=== PATIENT | female | born 1940 | race American Indian/Alaskan Native ===

== ENCOUNTER 2016-06-19 09:11 | Outpatient (CLI) | payer MEDICARE ==
--- NOTE | 2016-06-19 11:00 | Ultrasound Report ---
RIGHT UPPER QUADRANT ULTRASOUND: HISTORY: Abnormal results of liver function studies. Technique: Transabdominal ultrasound imaging with Doppler interrogation. FINDINGS: The gallbladder is sonolucent with no evidence of stones, polyps or wall thickening. The common duct is normal in caliber. Images of the liver parenchyma, pancreas, right kidney and aorta are within normal limits. No perihepatic ascites. IMPRESSION: Unremarkable right upper quadrant ultrasound.
== END 2016-06-19 09:12 | disposition home or self-care (01) ==
LOC: US 09:11
PROVIDERS: ATTEND Internal Medicine Gastroenterology
DX: R94.5 Abnormal results of liver function studies (principal)
CPT/HCPCS: 76705

== ENCOUNTER 2016-10-03 15:53 | Emergency (ER) | payer MEDICARE ==
[2016-10-03 17:48] LABS: Basophils % (Auto) 2.7 % (0.0-1.8); Eosinophils % (Auto) 1.8 % (0.0-4.3); Hematocrit 38.1 % (30.3-42.9); Hemoglobin 12.7 gm/dl (10.1-14.3); Mean Corpuscular HGB Conc 33 % (30-34); Mean Corpuscular Hemoglobin 30 pg (28-32); Mean Corpuscular Volume 90 fl (79-97); Platelet Count 225 K/mm3 (140-440); Red Blood Count 4.25 M/mm3 (3.65-5.03); Red Cell Distribution Width 13.2 % (13.2-15.2); White Blood Count 6.7 K/mm3 (4.5-11.0)
--- NOTE | 2016-10-03 18:12 | Cat Scan Report ---
FINAL REPORT PROCEDURE: CT HEAD/BRAIN WO CON TECHNIQUE: Computerized tomography of the head was performed without contrast material. HISTORY: Matt temp blind COMPARISON: No prior studies are available for comparison. FINDINGS: Skull and scalp: Sclerotic foci in the calvarium including high right frontal 9 millimeters right frontal bone 9 millimeters with patchy areas of sclerosis suspected. Followup and further workup is advised. Osseous metastasis is not excludable. Orbits: No intraconal or extraconal mass. No definitive pathology along the optic tracts, specifically on the right. Paranasal sinuses: Normal. Ventricles and subarachnoid spaces: Mild to moderately prominent ventricles in the posterior occipital lobes with only minimal prominence of the frontal and upper lateral ventricles Cerebrum: No evidence of hemorrhage, acute infarction or mass . Cerebellum and brainstem: No evidence of hemorrhage, acute infarction or mass. Vasculature: Normal. Comments: Mild to moderate diffuse atrophy with mild periventricular microischemic change and central lacunar infarct disease. Basal ganglia microcalcifications. If symptoms and or concern persists recommend MRI IMPRESSION: No acute intracranial pathology suspected at this time Asymmetric prominence of the occipital lobes indeterminate. No prior CT scan on file.
[2016-10-03 18:14] LABS: INR 1.02 (0.87-1.13)
[2016-10-03 18:32] LABS: Erythrocyte Sedimentation Rate 30 mm/Hr (0-20)
[2016-10-03 19:35] LABS: Creatine Kinase 319 units/L (30-135); Creatine Kinase MB 9.4 ng/mL (0.0-4.0)
[2016-10-03] MEDS ORDERED: CATAPRES ONE (21:21)
[2016-10-03] MEDS ORDERED: CATAPRES PO ONE ×2 (21:30→21:53)
[2016-10-03 22:12] VITALS: BP 225/112
[2016-10-03] MEDS ORDERED: ASPIRIN PO ONE (22:17)
--- NOTE | 2016-10-03 22:17 | Emergency Department Report ---
ED Neuro Deficit HPI - General Chief Complaint: Neuro Symptoms/Deficit Stated Complaint: BLACKED OUT Time Seen by Provider: 10/03/16 20:35 Source: patient Mode of arrival: Ambulatory Limitations: No Limitations - History of Present Illness Initial Comments: 76 yo female with a past medical history diabetes, mitral valve prolapse, glaucoma and chronic pain presents to the hospital complaining of transient loss of vision prior to arrival. Patient is a diabetic and states she assumed that this was secondary to her blood sugar dropping. Patient takes NovoLog sliding scale twice a day. Patient states she did eat but thinks maybe she didn 't eat enough. Patient said onset of visual loss to the right eye. Left eye was not affected. Patient denies diaphoresis, generalized weakness, or confusion. She was unable to check her glucose but ate some additional snacks then started to feel better. Episode lasted 20 minutes. Patient states that she felt like her sugar was low but was unable to confirm but denies having an ocular visual loss with hypoglycemia in the past. Patient has had transient unilateral vision loss a year ago and had a unremarkable stroke workup. - Related Data Home Medications: Home Medications Medication Instructions Recorded Confirmed Last Taken traMADol [Ultram] 50 mg PO Q4HR PRN 03/13/13 03/13/13 Unknown Previous Rx's Medication Instructions Recorded Last Taken Type HYDROcodone/ACETAMINOPHEN [[place] 1 each PO Q6HR PRN #20 tablet 03/13/13 Unknown Rx 5/325 Tablet] Aspirin EC [Aspirin Enteric Coated 325 mg PO QDAY #30 tablet. 10/03/16 Unknown Rx TAB] amLODIPine [Norvasc] 5 mg PO DAILY #30 tab 10/03/16 Unknown Rx Allergies/Adverse Reactions: Allergies Allergy/AdvReac Type Severity Reaction Status Date / Time gabapentin Allergy Unknown Verified 10/19/15 12:55 glipizide Allergy Shortness Verified 10/19/15 12:55 of Breath latex Allergy Swelling Verified 11/02/15 22:12 Penicillins Allergy Unknown Verified 10/19/15 12:54 sulfamethoxazole Allergy Itching Verified 10/19/15 12:54 [From Bactrim] trimethoprim [From Bactrim] Allergy Itching Verified 10/19/15 12:54 egg AdvReac Vomiting Verified 10/19/15 12:54 iv contrast Allergy Itching Uncoded 10/19/15 12:54 ED Review of Systems ROS: Stated complaint: BLACKED OUT Other details as noted in HPI Comment: All other systems reviewed and negative Other: Constitutional: No fevers chills Eyes: As per HPI ENT: No ear pain or throat pain Neck: Denies pain Respiratory: Denies cough wheezing shortness of breath Cardiovascular: Denies chest pain, palpitations, syncope GI: Denies abdominal pain, nausea, vomiting, diarrhea : Denies dysuria Musculoskeletal: Denies back pain, joint swelling Skin: Denies rash, lesions, erythema Neurologic: Denies headache, numbness, weakness Psychiatric: Denies suicidal ideation, hallucinations ED Past Medical Hx - Past Medical History Hx Diabetes: Yes Hx Arthritis: Yes Additional medical history: mitral valve prolapse, cyst in breast. GLAUCOMA - Surgical History Additional Surgical History: tubal, R pinky toe amputated - Social History Smoking Status: Never Smoker Substance Use Type: None - Medications Home Medications: Home Medications Medication Instructions Recorded Confirmed Last Taken Type HYDROcodone/ACETAMINOPHEN [[place] 1 each PO Q6HR PRN #20 tablet 03/13/13 Unknown Rx 5/325 Tablet] traMADol [Ultram] 50 mg PO Q4HR PRN 03/13/13 03/13/13 Unknown History Aspirin EC [Aspirin Enteric Coated 325 mg PO QDAY #30 tablet. 10/03/16 Unknown Rx TAB] amLODIPine [Norvasc] 5 mg PO DAILY #30 tab 10/03/16 Unknown Rx ED Neuro Physical Exam - General Limitations: No Limitations Suspected Stroke: Yes - NIHSS Assessment Interval: Baseline 1a. Level of Consciousness: alert 1b. LOC Questions: answers correctly 1c. LOC Commands: performs tasks correctly 2. Best Gaze: normal 3. Visual: no visual loss 4. Facial Palsy: normal symmetrical movement 5b. Motor Arm Right: no drift 5a. Motor Arm Left: no drift 6a. Motor Leg Left: no drift 6b. Motor Leg Right: no drift 7. Limb Ataxia: absent 8. Sensory: normal 9. Best Language: no aphasia 10. Dysarthria: normal 11. Extinction/Inattention: no abnormality Total Score: 0 Stroke Severity: No Stroke Symptoms - Other Other exam information: General: No limitations, patient is alert in no acute distress Head exam: Atraumatic, normocephalic Eyes exam: Normal appearance, pupils equal reactive to light, extraocular movements intact ENT: Moist mucous membrane, normal oropharynx Neck exam: Normal inspection, full range of motion, no meningismus nontender Respiratory exam: Clear to auscultation bilateral, no wheezes, rales, crackles Cardiovascular: Normal rate and rhythm, normal heart sounds Abdomen: Soft, nondistended, and nontender, with normal bowel sounds, no rebound, or guarding Extremity: Full range of motion normal inspection no deformity Back: Normal Inspection, full range of motion, no tenderness Neurologic: Alert, oriented x3, cranial nerves intact, no motor or sensory deficit, [id number] function intact Psychiatric: normal affect, normal mood Skin: Warm, dry, intact ED Course Vital Signs 10/03/16 10/03/16 10/03/16 16:35 20:35 20:40 Temperature 97.9 F Pulse Rate 86 Respiratory 16 Rate Blood Pressure 156/84 227/108 227/108 O2 Sat by Pulse 100 99 Oximetry 10/03/16 10/03/16 10/03/16 20:50 21:00 21:10 Temperature Pulse Rate Respiratory Rate Blood Pressure 216/108 217/183 217/183 O2 Sat by Pulse 99 98 99 Oximetry 10/03/16 10/03/16 10/03/16 21:20 21:31 22:12 Temperature Pulse Rate Respiratory Rate Blood Pressure 235/125 217/125 225/112 O2 Sat by Pulse 99 Oximetry - Reevaluation(s) Reevaluation #1: 10/03/16 Patient provided clonidine 0.2 mg and aspirin during ED stay. - Lab Data Result diagrams: 10/03/16 17:31 Lab Results 10/03/16 10/03/16 10/03/16 Range/Units 16:32 17:31 17:31 WBC 6.7 (4.5-11.0) K/mm3 RBC 4.25 (3.65-5.03) M/mm3 Hgb 12.7 (10.1-14.3) gm/dl Hct 38.1 (30.3-42.9) % MCV 90 (79-97) fl MCH 30 (28-32) pg MCHC 33 (30-34) % RDW 13.2 (13.2-15.2) % Plt Count 225 (140-440) K/mm3 Lymph % (Auto) 24.9 (13.4-35.0) % [place] % (Auto) 8.1 H (0.0-7.3) % Eos % (Auto) 1.8 (0.0-4.3) % Baso % (Auto) 2.7 H (0.0-1.8) % Lymph # 1.7 (1.2-5.4) K/mm3 [place] # 0.5 (0.0-0.8) K/mm3 Eos # 0.1 (0.0-0.4) K/mm3 Baso # 0.2 H (0.0-0.1) K/mm3 Seg Neutrophils % 62.5 (40.0-70.0) % Seg Neutrophils # 4.2 (1.8-7.7) K/mm3 ESR 30 (0-20) mm/Hr PT 13.3 (12.2-14.9) Sec. INR 1.02 (0.87-1.13) APTT 31.0 (24.2-36.6) Sec. Thrombin Time 15.8 (15.1-19.6) Sec. POC Glucose 112 H (70-105) Total Creatine Kinase (30-135) units/L CK-MB (CK-2) (0.0-4.0) ng/mL CK-MB (CK-2) Rel Index (0-4) Troponin T (0.00-0.029) ng/mL 10/03/16 Range/Units 17:31 WBC (4.5-11.0) K/mm3 RBC (3.65-5.03) M/mm3 Hgb (10.1-14.3) gm/dl Hct (30.3-42.9) % MCV (79-97) fl MCH (28-32) pg MCHC (30-34) % RDW (13.2-15.2) % Plt Count (140-440) K/mm3 Lymph % (Auto) (13.4-35.0) % [place] % (Auto) (0.0-7.3) % Eos % (Auto) (0.0-4.3) % Baso % (Auto) (0.0-1.8) % Lymph # (1.2-5.4) K/mm3 [place] # (0.0-0.8) K/mm3 Eos # (0.0-0.4) K/mm3 Baso # (0.0-0.1) K/mm3 Seg Neutrophils % (40.0-70.0) % Seg Neutrophils # (1.8-7.7) K/mm3 ESR (0-20) mm/Hr PT (12.2-14.9) Sec. INR (0.87-1.13) APTT (24.2-36.6) Sec. Thrombin Time (15.1-19.6) Sec. POC Glucose (70-105) Total Creatine Kinase 319 H (30-135) units/L CK-MB (CK-2) 9.4 H (0.0-4.0) ng/mL CK-MB (CK-2) Rel Index 2.9 (0-4) Troponin T < 0.010 (0.00-0.029) ng/mL - Radiology Data Radiology results: report reviewed CT head non-contrast: No acute pathology. Asymmetric prominence of this upper lobe indeterminate. Sclerotic foci in the calvarium including high right frontal 9 mm right frontal bone 9 mm in past years of sclerosis suspected. Follow-up and further workup of advised. Osseous metastasis not excluded. - Medical Decision Making Patient refuses EKG data she had a EKG as outpatient yesterday. EKG does reveal sinus rhythm. Patient initially refused clonidine stated she has whitecoat syndrome but then was eventually agreeable to taking clonidine 0.2 mg. Aspirin also ordered given concerns for TIA symptoms given transient unilateral loss of vision. Patient seems to think that her symptoms were secondary to hypoglycemia, this has not been confirmed. Admission recommended giving unilateral visual loss and risk of stroke. Patient has declined admission at this time and will leave AGAINST MEDICAL ADVICE. - Differential Diagnosis intraocular abnormality, TIA, hypoglycemic episode Critical Care Time: No Critical care attestation.: If time is entered above; I have spent that time in minutes in the direct care of this critically ill patient, excluding procedure time. ED Disposition Clinical Impression: Transient visual loss of right eye, Uncontrolled hypertension Disposition: [id number] LEFT AGAINST MED ADVICE Is pt being admited?: No Condition: Stable Instructions: Transient Ischemic Attack (ED), Hypertension (ED) Additional Instructions: We are concerned for stroke today given the fact that you lost your vision temporarily admission for further workup and has been recommended because you are at risk for severe and more persistent stroke symptoms. You have refused admission at this time. I have prescribed aspirin to help prevent further stroke symptoms. I have prescribed a blood pressure pill given your elevated blood pressure today. You are signing out AGAINST MEDICAL ADVICE because risk of stroke has not been ruled out and you may exhibit further disability and possible . You have also been provided a copy of the CAT scan and incidental findings may need further outpatient evaluation Prescriptions: amLODIPine [Norvasc] 5 mg PO DAILY #30 tab Aspirin EC [Aspirin Enteric Coated TAB] 325 mg PO QDAY #30 tablet. Referrals: PRIMARY CARE, [Primary Care Provider] - 24 Hours Forms: AMA Form Time of Disposition: 22:18
== END 2016-10-03 22:54 | disposition left against medical advice (07) ==
LOC: ED 15:53
DX: H53.121 Transient visual loss, right eye (principal); I10 Essential (primary) hypertension; M19.90 Unspecified osteoarthritis, unspecified site; E11.9 Type 2 diabetes mellitus without complications; Z79.82 Long term (current) use of aspirin; Z88.8 Allergy status to other drugs, medicaments and biological substances; Z88.0 Allergy status to penicillin; Z88.2 Allergy status to sulfonamides; Z91.012 Allergy to eggs; Z91.041 Radiographic dye allergy status
CPT/HCPCS: 36415; 70450; 82550; 82553; 82962; 84484; 85025; 85610; 85652; 85670; 85730; 99285

== ENCOUNTER 2016-10-05 17:21 | Inpatient (IN) | payer MEDICARE ==
[2016-10-05] MEDS ORDERED: CATAPRES ONE (17:54)
[2016-10-05] MEDS ORDERED: CATAPRES PO ONE (18:01)
[2016-10-05 18:07] LABS: Basophils % (Auto) 1.4 % (0.0-1.8); Eosinophils % (Auto) 1.7 % (0.0-4.3); Hematocrit 35.4 % (30.3-42.9); Hemoglobin 11.6 gm/dl (10.1-14.3); Mean Corpuscular HGB Conc 33 % (30-34); Mean Corpuscular Hemoglobin 30 pg (28-32); Mean Corpuscular Volume 90 fl (79-97); Platelet Count 227 K/mm3 (140-440); Red Blood Count 3.94 M/mm3 (3.65-5.03); Red Cell Distribution Width 13.4 % (13.2-15.2); White Blood Count 5.6 K/mm3 (4.5-11.0)
[2016-10-05 18:18] LABS: INR 0.91 (0.87-1.13)
[2016-10-05 18:19] LABS: Partial Thromboplastin Time 33.5 Sec. (24.2-36.6)
[2016-10-05 18:28] LABS: Anion Gap 19 mmol/L; BUN/Creatinine Ratio 18.46; Blood Urea Nitrogen 24 mg/dL (7-17); Carbon Dioxide 21 mmol/L (22-30); Chloride 100.5 mmol/L (98-107); Glucose 130 mg/dL (65-100); Potassium 4.3 mmol/L (3.6-5.0); Sodium 136 mmol/L (137-145)
--- NOTE | 2016-10-05 19:17 | Cat Scan Report ---
FINAL REPORT PROCEDURE: CT HEAD/BRAIN WO CON TECHNIQUE: Computerized tomography of the head was performed without contrast material. HISTORY: neuro deficits COMPARISON: Prior CT scan of the brain 10/03/2016 FINDINGS: Brain: There is no evidence of intracranial hemorrhage. No parenchymal hemorrhage is seen. No mass lesions or mass effect is identified. No abnormal extra-axial fluid collections or masses are seen. There is some decreased density seen in the periventricular white matter without mass effect. This is fairly symmetric and does not exhibit any mass effect consistent with gliosis probably on the basis of microvascular disease or white matter changes of aging. Ventricles: The ventricles, sulcal pattern and fissures are prominent consistent with atrophy. Bones: No evidence of acute fracture. Paranasal sinuses: Visualized portions appear clear. Mastoid air cells: clear IMPRESSION: Stable exam. There is evidence of mild atrophy and mild gliosis. No acute intracranial abnormalities are identified. If symptoms are persisting or worsening consider follow-up CT scan or MRI for further evaluation.
--- NOTE | 2016-10-05 22:20 | Emergency Department Report ---
ED General Adult HPI - General Chief complaint: Headache Stated complaint: FOLLOW UP / TIA Time Seen by Provider: 10/05/16 20:03 Source: patient Mode of arrival: Ambulatory Limitations: No Limitations - History of Present Illness Initial comments: She has a significant [id number] female past medical history of mitral valve prolapse and glaucoma who presents with headache. Patient states that she was here on the 11 of this month. When she had blindness in her right eye that lasted for 15 minutes. She states that her headache is a 5 [place] located in the temporal area of her head nothing makes it better or worse the headache is intermittent. Some gone on and off since she first came to the emergency department 2 days ago. The pain does not radiate anywhere. Patient left AGAINST MEDICAL ADVICE and her last visit in the ED. - Related Data Home Medications Medication Instructions Recorded Confirmed Last Taken traMADol [Ultram] 50 mg PO Q4HR PRN 03/13/13 03/13/13 Unknown Previous Rx's Medication Instructions Recorded Last Taken Type HYDROcodone/ACETAMINOPHEN [[place] 1 each PO Q6HR PRN #20 tablet 03/13/13 Unknown Rx 5/325 Tablet] Aspirin EC [Aspirin Enteric Coated 325 mg PO QDAY #30 tablet. 10/03/16 Unknown Rx TAB] amLODIPine [Norvasc] 5 mg PO DAILY #30 tab 10/03/16 Unknown Rx Allergies Allergy/AdvReac Type Severity Reaction Status Date / Time gabapentin Allergy Unknown Verified 10/19/15 12:55 glipizide Allergy Shortness Verified 10/19/15 12:55 of Breath latex Allergy Swelling Verified 11/02/15 22:12 Penicillins Allergy Unknown Verified 10/19/15 12:54 sulfamethoxazole Allergy Itching Verified 10/19/15 12:54 [From Bactrim] trimethoprim [From Bactrim] Allergy Itching Verified 10/19/15 12:54 egg AdvReac Vomiting Verified 10/19/15 12:54 iv contrast Allergy Itching Uncoded 10/19/15 12:54 ED Review of Systems ROS: Stated complaint: FOLLOW UP / TIA Other details as noted in HPI Constitutional: denies: chills, fever Eyes: as per HPI, vision change. denies: eye pain, eye discharge ENT: denies: ear pain, throat pain Respiratory: denies: cough, shortness of breath, wheezing Cardiovascular: denies: chest pain, palpitations Endocrine: no symptoms reported Gastrointestinal: denies: abdominal pain, nausea, diarrhea Genitourinary: denies: urgency, dysuria, discharge Musculoskeletal: denies: back pain, joint swelling, arthralgia Skin: denies: rash, lesions Neurological: headache Psychiatric: denies: anxiety, depression Hematological/Lymphatic: denies: easy bleeding, easy bruising ED Past Medical Hx - Past Medical History Previous Medical History?: Yes Hx Diabetes: Yes Hx Arthritis: Yes Additional medical history: mitral valve prolapse, cyst in breast. GLAUCOMA - Surgical History Past Surgical History?: Yes Additional Surgical History: tubal, R pinky toe amputated - Social History Smoking Status: Never Smoker Substance Use Type: None - Medications Home Medications: Home Medications Medication Instructions Recorded Confirmed Last Taken Type HYDROcodone/ACETAMINOPHEN [[place] 1 each PO Q6HR PRN #20 tablet 03/13/13 Unknown Rx 5/325 Tablet] traMADol [Ultram] 50 mg PO Q4HR PRN 03/13/13 03/13/13 Unknown History Aspirin EC [Aspirin Enteric Coated 325 mg PO QDAY #30 tablet. 10/03/16 Unknown Rx TAB] amLODIPine [Norvasc] 5 mg PO DAILY #30 tab 10/03/16 Unknown Rx ED Physical Exam - General Limitations: No Limitations General appearance: alert, in no apparent distress - Head Head exam: Present: atraumatic, normocephalic - Eye Eye exam: Present: other (cataracts ) Pupils: Present: other - ENT ENT exam: Present: mucous membranes moist - Neck Neck exam: Present: normal inspection - Respiratory Respiratory exam: Present: normal lung sounds bilaterally. Absent: respiratory distress - Cardiovascular Cardiovascular Exam: Present: systolic murmur - GI/Abdominal GI/Abdominal exam: Present: soft, normal bowel sounds - Extremities Exam Extremities exam: Present: normal inspection - Back Exam Back exam: Present: normal inspection - Neurological Exam Neurological exam: Present: alert, oriented X3, CN II-XII intact - Psychiatric Psychiatric exam: Present: normal affect - Skin Skin exam: Present: warm ED Course Vital Signs 10/05/16 10/05/16 10/05/16 17:33 18:02 20:10 Temperature 98.5 F Pulse Rate 91 H 91 H 90 Respiratory 16 20 Rate Blood Pressure 170/122 170/122 Blood Pressure 198/94 [Right] O2 Sat by Pulse 100 100 Oximetry 10/05/16 10/05/16 21:00 22:00 Temperature Pulse Rate 89 91 H Respiratory 18 19 Rate Blood Pressure Blood Pressure 200/100 200/110 [Right] O2 Sat by Pulse 100 100 Oximetry - Reevaluation(s) Reevaluation #1: 10/05/16 22:33 Reevaluation she states headache is better discussed patient that she will need to be admitted for TIA workup patient agrees with plan. ED Medical Decision Making - Lab Data Result diagrams: 10/05/16 17:54 10/05/16 17:54 Lab Results 10/05/16 10/05/16 10/05/16 Range/Units 17:54 17:54 17:54 WBC 5.6 (4.5-11.0) K/mm3 RBC 3.94 (3.65-5.03) M/mm3 Hgb 11.6 (10.1-14.3) gm/dl Hct 35.4 (30.3-42.9) % MCV 90 (79-97) fl MCH 30 (28-32) pg MCHC 33 (30-34) % RDW 13.4 (13.2-15.2) % Plt Count 227 (140-440) K/mm3 Lymph % (Auto) 36.3 H (13.4-35.0) % [place] % (Auto) 10.8 H (0.0-7.3) % Eos % (Auto) 1.7 (0.0-4.3) % Baso % (Auto) 1.4 (0.0-1.8) % Lymph # 2.0 (1.2-5.4) K/mm3 [place] # 0.6 (0.0-0.8) K/mm3 Eos # 0.1 (0.0-0.4) K/mm3 Baso # 0.1 (0.0-0.1) K/mm3 Seg Neutrophils % 49.8 (40.0-70.0) % Seg Neutrophils # 2.8 (1.8-7.7) K/mm3 PT 12.2 (12.2-14.9) Sec. INR 0.91 (0.87-1.13) APTT 33.5 (24.2-36.6) Sec. Thrombin Time (15.1-19.6) Sec. Sodium 136 L (137-145) mmol/L Potassium 4.3 (3.6-5.0) mmol/L Chloride 100.5 (98-107) mmol/L Carbon Dioxide 21 L (22-30) mmol/L Anion Gap 19 mmol/L BUN 24 H (7-17) mg/dL Creatinine 1.3 H (0.7-1.2) mg/dL Estimated GFR 48 ml/min BUN/Creatinine Ratio 18.46 % Glucose 130 H (65-100) mg/dL Calcium 9.0 (8.4-10.2) mg/dL Troponin T < 0.010 (0.00-0.029) ng/mL 10/05/16 Range/Units 17:54 WBC (4.5-11.0) K/mm3 RBC (3.65-5.03) M/mm3 Hgb (10.1-14.3) gm/dl Hct (30.3-42.9) % MCV (79-97) fl MCH (28-32) pg MCHC (30-34) % RDW (13.2-15.2) % Plt Count (140-440) K/mm3 Lymph % (Auto) (13.4-35.0) % [place] % (Auto) (0.0-7.3) % Eos % (Auto) (0.0-4.3) % Baso % (Auto) (0.0-1.8) % Lymph # (1.2-5.4) K/mm3 [place] # (0.0-0.8) K/mm3 Eos # (0.0-0.4) K/mm3 Baso # (0.0-0.1) K/mm3 Seg Neutrophils % (40.0-70.0) % Seg Neutrophils # (1.8-7.7) K/mm3 PT (12.2-14.9) Sec. INR (0.87-1.13) APTT (24.2-36.6) Sec. Thrombin Time 16.1 (15.1-19.6) Sec. Sodium (137-145) mmol/L Potassium (3.6-5.0) mmol/L Chloride (98-107) mmol/L Carbon Dioxide (22-30) mmol/L Anion Gap mmol/L BUN (7-17) mg/dL Creatinine (0.7-1.2) mg/dL Estimated GFR ml/min BUN/Creatinine Ratio % Glucose (65-100) mg/dL Calcium (8.4-10.2) mg/dL Troponin T (0.00-0.029) ng/mL - Radiology Data Radiology results: report reviewed, image reviewed CT head shows mild atrophia and mild gliosis. No acute intracranial abnormality. F/U MRI recommended. - Medical Decision Making Chief medical diagnosis: TIA Differential medical diagnosis: stroke, electrolyte abnormality, HTN urgency I'll get a CBC, CMP, CT head and will admit patient for TIA workup Patient's signs are concerning for TIA I will admit patient to the hospital. Critical care attestation.: If time is entered above; I have spent that time in minutes in the direct care of this critically ill patient, excluding procedure time. ED Disposition Clinical Impression: Hypertensive urgency TIA (transient ischemic attack) Qualifiers: Transient cerebral ischemia type: unspecified Qualified Code(s): G45.9 - Transient cerebral ischemic attack, unspecified Disposition: 09 OP ADMIT IP TO THIS HOSP Is pt being admited?: Yes Does the pt Need Aspirin: No Condition: Stable Referrals: PRIMARY CARE, [Primary Care Provider] - 3-5 Days Time of Disposition: 23:10
[2016-10-05] MEDS ORDERED: APRESOLINE PO ONE (23:34)
[2016-10-05] MEDS ORDERED: NORMODYNE IV ONE (23:34)
[2016-10-06] MEDS ORDERED: NORVASC PO ONE ×2 (00:05→00:33)
[2016-10-06] MEDS ORDERED: TYLENOL PO PRN (00:11)
[2016-10-06] MEDS ORDERED: D50W (25GM) Syringe IV PRN (00:13)
[2016-10-06] MEDS ORDERED: ZOFRAN IV PRN ×2 (00:14→10:30)
[2016-10-06] MEDS ORDERED: APRESOLINE IV PRN (04:07)
[2016-10-06] MEDS ORDERED: NORCO 5/325 PO PRN (04:09)
[2016-10-06] MEDS ORDERED: ULTRAM PO PRN (04:09)
--- NOTE | 2016-10-06 08:09 | Admit Criteria Form ---
Admission Criteria Documentation: TRANSIENT ISCHEMIC ATTACK (TIA) Clinical Indications for Admission to Inpatient Care (Place 'X' for any and all applicable criteria): Admission is indicated for ANY ONE of the following(1)(2)(3)(4)(5): [ ]I. Immediate inpatient procedure is needed (eg, endarterectomy). [X]II. Inpatient admission required rather than observation care (Also use Transient Ischemic Attack (TIA): Observation Care Criteria as appropriate) because of ANY ONE of the following: [ ]a) Focal neurologic signs or symptoms persist or recurring [ ]b) Cardiac arrhythmias of immediate concern [ ]c) Clinically significant cardiac disorder identified that requires inpatient care (eg, severe valvular disease, atrial myxoma, cardiomyopathy) [X]d) Hypertension requiring inpatient treatment [ ]e) Parenteral anticoagulation required (eg, alternative forms of anticoagulation not appropriate or not feasible) as indicated by ALL of the following(13): [ ]i) Temporary subtherapeutic anticoagulation unacceptable because of high risk of short-term venous or arterial thromboembolism due to ANY ONE of the following(14)(15)(16): [ ]1) Atrial fibrillation suspected as etiology of TIA(17)(18)(19)(20)(21) [ ]2) Venous thromboembolism within past 12 months [ ]3) Underlying malignancy [ ]4) Patient with mechanical cardiac valve(22)( 23) [ ]5) Underlying hypercoagulable state (eg, protein C or protein S deficiency antithrombin deficiency, antiphospholipid antibodies) [ ]6) Patient at temporary high risk of thromboembolism (eg, status post orthopedic surgery) [ ]ii) Contraindications to outpatient use of "bridging" agent or alternative oral anticoagulant[B] as indicated by ALL of the following: [ ]1) Contraindication to outpatient use of low- molecular-weight heparin as "bridging" agent as indicated by ANY ONE of the following(15): [ ]A. Documented current or history of heparin-induced thrombocytopenia(24) [ ]B. Severe thrombocytopenia (eg, platelet count less than 50,000/mm3 (33y325/L) [ ]C. Documented allergy to heparin, low- molecular-weight heparin, or pork products [ ]D. Renal failure (creatinine clearance less than 30 mL/min/1.73m2 (0.50mL/sec/1.73m2) or on dialysis) [ ]E. Inability to manage self-injection ( eg, by patient, caregiver, or visiting nurse) [ ]2) Contraindication to outpatient use of fondaparinux as "bridging" agent as indicated by ANY ONE of the following(25)(26 )(27)(28): [ ]A. Severe thrombocytopenia (eg, platelet count less than 50,000/mm3 (50 x109/L)) [ ]B.Hypersensitivity to fondaparinux, related drugs, or product components [ ]C.Renal failure (creatinine clearance less than 30 mL/min/1.73m2 (0.50mL/sec/1.73m2) or on dialysis) [ ]D.Inability to manage self-injection ( eg, by patient, caregiver, or visiting nurse [ ]3. Oral direct thrombin inhibitor (eg, dabigatran) or oral coagulation factor Xa inhibitor (eg, rivaroxaban, apixaban) not appropriate as oral anticoagulation (eg, indication not appropriate) or contraindicated (eg, hypersensitivity, creatinine clearance less than 15 mL/min/1.73m2 ( 0.25 mL/sec/1.73m2) or on dialysis). [ ]f) Continuous IV infusion of anticoagulant, platelet inhibitor, vasoactive or antiarrhythmia(18)(19) [ ]g) Other condition, treatment, or monitoring requiring inpatient admission [ ]III. Contraindications and/or Inappropriate clinical situations for Observational Care in patients with Transient Ischemic Attack (TIA), when ANY ONE of the following is required: [ ]a) Patient with persistent or severe neurological deficit 24 [ ]b) Patient with acute CVA or other identified pathology should be admitted to inpatient for further care 25 [ ]IV. General contraindications and/or Inappropriate clinical situations for Observational Care in patients with Transient Ischemic Attack (TIA), when ANY ONE of the following is required: [ ]a) Prediction of prolongation of LOS based on ANY ONE of the following may be considered as a contraindication for observational care 2, 3, 4, 5, 6, 7, 8, 9, 10, 11 [ ]i) Age > 65 yrs. [ ]ii) Patient arriving by ambulance [ ]iii) Patient with high acuity [ ]iv) Patient requiring vital sign monitoring [ ]v) Patient on IV medication [ ]b) Systolic blood pressures 180mmHg 3,12 [ ]c) Patient with altered mental status including delirium and other alteration of consciousness, (3) [ ]d) Patient whose discharge disposition will be to a care home home or rehabilitation home should not be managed in Emergency Department Observation Unit. CMS rule requires 3 days hospital stay before such placement.3,13 [ ]e) Patient with failure to thrive due to broad array of etiologies 3,16,17 [ ]f) Inability to ambulate 3,14 Extended stay beyond goal length of stay may be needed for(4)(30)(32): [ ]a) Parenteral anticoagulation required [ ]b) Dangerous arrhythmia [ ]c) Cardiac valvular disorder, atrial myxoma, cardiomyopathy [ ]d) Uncontrolled severe hypertension [ ]e) Severe carotid stenosis [ ]f) Active comorbidities (eg, heart failure) [ ]g) Extracranial vertebrobasilar disease(29) [ ]h) Clinical evolution of TIA into cerebrovascular accident (stroke) The original [employer] content created by [employer] has been revised. The portions of thecontent which have been revised are identified through the use of italic text or in bold, and [facility] has neither reviewed nor approved the modified material. All other unmodified content is copyright [facility] [employer]. Please see references footnoted in the original [facility] edition 2016 Admission Criteria Met: Yes
[2016-10-06 08:19] LABS: Creatine Kinase MB 6.9 ng/mL (0.0-4.0)
[2016-10-06 08:22] LABS: Creatine Kinase 460 units/L (30-135)
--- NOTE | 2016-10-06 08:45 | History and Physical Report ---
CHIEF COMPLAINT: Headache, other complaints include loss of vision in the right eye. HISTORY OF PRESENT ILLNESS: The patient is a 76-year-old female who presented to the Emergency Room with headache and loss of vision in the right eye for about 15 minutes. The patient had similar symptoms not too long ago, came to the Emergency Room and left against medical advice. There is no history of numbness on any part of the body. No history of change in speech or abnormal speech. The patient also denied history of weakness in any part of the body and said that the loss of vision improved after some 15-20 minutes. The patient denied history of pain in the eye or trauma to the eye. PAST MEDICAL HISTORY: Pertinent for diabetes mellitus, also the patient has past history of arthritis, mitral valve prolapse, cyst in the breast, glaucoma. PAST SURGICAL HISTORY: Pertinent for tubal ligation, right pinky toe amputation. FAMILY HISTORY: Noncontributory. SOCIAL HISTORY: The patient does not smoke, does not drink alcohol and does not use illicit drugs. MEDICATIONS: The patient is on Kimberly 5/325 one by mouth every 6 hours as needed for pain, Ultram 50 mg by mouth every 4 hours as needed for pain and enteric-coated aspirin 325 mg by mouth daily. The patient is also on Norvasc 5 mg by mouth daily. ALLERGIES: The patient is allergic to GABAPENTIN, GLIPIZIDE, LATEX, PENICILLIN, AND SULFAMETHOXAZOLE. REVIEW OF SYSTEMS: CONSTITUTIONAL: There is no fever, no chills, no diaphoresis. HEENT: Denies headache and there is loss of vision for a brief period of time on the right eye. There is no sore throat. CARDIOVASCULAR SYSTEM: There is no chest pain, orthopnea. RESPIRATORY: There is no shortness of breath or cough. GASTROINTESTINAL SYSTEM: There is no nausea, no vomiting, no abdominal pain, diarrhea or constipation. NEUROLOGICAL SYSTEM: There is no numbness, no dizziness, no altered mental status. MUSCULOSKELETAL SYSTEM: There is no joint pain or swelling. DERMATOLOGICAL SYSTEM: There is no skin rash or itching. GENITOURINARY: There is no dysuria, hematuria, or flank pain. Rest of system review is normal. PHYSICAL EXAMINATION: GENERAL: At the time of exam, the patient was found to be alert, oriented x 3 and not in acute distress. VITAL SIGNS: Shows normal temperature with pulse of 86, respirations 18, initial blood pressure 208/97, O2 sat of 100% on room air. Subsequent blood pressure showed a downward trend to 130/64 and the last blood pressure at the time of this dictation shows 151/75. HEENT: Showed pupils to be equal, round, reactive to light and accommodation. Extraocular muscles are intact. NECK: Supple with no JVD or carotid bruit. CARDIOVASCULAR SYSTEM: Show first and second heart sounds with no gallops or murmur. RESPIRATORY: Showed good air entry on both sides of the lung with no abnormal breath sounds. GASTROINTESTINAL SYSTEM: Show abdomen to be full, soft, nontender with no organomegaly or rigidity. NEUROLOGICAL: Showed no focal deficits. MUSCULOSKELETAL SYSTEM: Show no joint swelling or tenderness. DERMATOLOGICAL SYSTEM: Show no skin rash. GENITOURINARY: Showing no costovertebral angle tenderness. PERTINENT LABORATORY DATA AND IMAGING STUDIES: The patient had CBC done that came back unremarkable except for CBC differential that shows high lymphocyte count of 36.3% and high monocyte count of 10.8. Coagulation studies were unremarkable. Chemistry shows low sodium of 136, low CO2 of 21 with high BUN of 24 with high creatinine of 1.3, glucose level showed a slightly high value of 130. First level of troponin came back normal. IMAGING STUDIES: The patient had a CT of the head done without contrast and it shows no acute intracranial abnormality. However there is finding of mild gliosis. DIAGNOSES: 1. TIA. 2. Transient loss of vision in the right eye. PLAN: The patient will be admitted to medical floor and will have MRI of the brain done in the morning. The patient will also have echocardiogram done in the morning and will have bilateral carotid Doppler done in the morning. The patient will have Accu-Chek done a.c. and at bedtime, followed by sliding scale using regular insulin coverage. The patient will be on telemetry. DVT prophylaxis will be with sequential compressive device. Diet will be consistent carbohydrate diet and low sodium diet. The patient will have cardiac enzymes checked q. 6 hours x 2 more levels and will be on Tylenol 650 mg every 6 hours as needed for fever, headache and will be on aspirin 325 mg by mouth daily. The patient will also be on Zofran 4 mg every 6 hours as needed for nausea and vomiting and will be on IV hydralazine 10 mg q. 4 hours as needed for blood pressure above 160/90. The patient's home medications will be reconciled and started. JOB# [id number] OCN/NTS MTDD
[2016-10-06] MEDS ORDERED: NORVASC PO SCH (10:00)
[2016-10-06] MEDS ORDERED: ECOTRIN PO SCH ×2 (10:00)
--- NOTE | 2016-10-06 10:04 | Magnetic Resonance Report ---
MRI BRAIN WITHOUT CONTRAST INDICATION: TIA. COMPARISON: Yesterday's head CT. FINDINGS: Noncontrast multiplanar and multisequence MRI of the brain demonstrates normal sulci and age-appropriate, symmetric ventricles with few periventricular and white matter FLAIR and T2 weighted hyperintensities. No acute infarct, hemorrhage, mass effect or midline shift. No abnormal extra-axial masses or fluid collections. Normal major intracranial vascular flow voids. Normal posterior fossa structures with symmetric seventh and eighth nerve complexes. Symmetric, grossly unremarkable eye globes. Mild bilateral ethmoid sinusitis anteriorly. Clear remainder imaged paranasal sinuses and mastoid air cells. Normal midline structures without evidence of Chiari malformation. CONCLUSION: No acute intracranial MRI abnormality with age-appropriate atrophy and few other incidental findings, as described. Thank you for the opportunity to participate in this patient's care.
--- NOTE | 2016-10-06 10:27 | Progress Note ---
Assessment and Plan Assessment and plan: CVA. Patient exhibited symptoms of what sounds like amaurosis fugax. Follow- up MRI/MRA and echocardiogram. Start aspirin and place patient on CVA pathway. Follow-up lipid panel. PT/OT. Supportive care. Right carotid artery stenosis. Carotid ultrasound reveals 50-70% stenosis. Vascular consultation. Mitral valve prolapse. Echocardiogram pending. History Interval history: Patient seen in vascular lab. Hospitalist Physical - Constitutional Vitals: Temp Pulse Resp BP Pulse Ox 98.5 F 74 14 109/51 97 10/05/16 17:33 10/06/16 07:00 10/06/16 07:00 10/06/16 07:00 10/06/16 07:00 General appearance: Present: no acute distress, well-nourished - EENT Eyes: Present: PERRL, EOM intact ENT: hearing intact, clear oral mucosa, dentition normal - Neck Neck: Present: supple, normal ROM - Respiratory Respiratory effort: normal Respiratory: bilateral: CTA - Cardiovascular Rhythm: regular Heart Sounds: Present: S1 & S2. Absent: gallop, rub - Extremities Extremities: no ischemia, No edema, Full ROM - Abdominal General gastrointestinal: soft, non-tender, non-distended, normal bowel sounds - Integumentary Integumentary: Present: clear, warm, dry - Neurologic Neurologic: CNII-XII intact, moves all extremities Results - Labs CBC & Chem 7: 10/05/16 17:54 10/05/16 17:54 Labs: Laboratory Last Values WBC 5.6 K/mm3 (4.5-11.0) 10/05/16 17:54 RBC 3.94 M/mm3 (3.65-5.03) 10/05/16 17:54 Hgb 11.6 gm/dl (10.1-14.3) 10/05/16 17:54 Hct 35.4 % (30.3-42.9) 10/05/16 17:54 MCV 90 fl (79-97) 10/05/16 17:54 MCH 30 pg (28-32) 10/05/16 17:54 MCHC 33 % (30-34) 10/05/16 17:54 RDW 13.4 % (13.2-15.2) 10/05/16 17:54 Plt Count 227 K/mm3 (140-440) 10/05/16 17:54 Lymph % (Auto) 36.3 % (13.4-35.0) H 10/05/16 17:54 [place] % (Auto) 10.8 % (0.0-7.3) H 10/05/16 17:54 Eos % (Auto) 1.7 % (0.0-4.3) 10/05/16 17:54 Baso % (Auto) 1.4 % (0.0-1.8) 10/05/16 17:54 Lymph # 2.0 K/mm3 (1.2-5.4) 10/05/16 17:54 [place] # 0.6 K/mm3 (0.0-0.8) 10/05/16 17:54 Eos # 0.1 K/mm3 (0.0-0.4) 10/05/16 17:54 Baso # 0.1 K/mm3 (0.0-0.1) 10/05/16 17:54 Seg Neutrophils % 49.8 % (40.0-70.0) 10/05/16 17:54 Seg Neutrophils # 2.8 K/mm3 (1.8-7.7) 10/05/16 17:54 PT 12.2 Sec. (12.2-14.9) 10/05/16 17:54 INR 0.91 (0.87-1.13) 10/05/16 17:54 APTT 33.5 Sec. (24.2-36.6) 10/05/16 17:54 Thrombin Time 16.1 Sec. (15.1-19.6) 10/05/16 17:54 Sodium 136 mmol/L (137-145) L 10/05/16 17:54 Potassium 4.3 mmol/L (3.6-5.0) 10/05/16 17:54 Chloride 100.5 mmol/L (98-107) 10/05/16 17:54 Carbon Dioxide 21 mmol/L (22-30) L 10/05/16 17:54 Anion Gap 19 mmol/L 10/05/16 17:54 BUN 24 mg/dL (7-17) H 10/05/16 17:54 Creatinine 1.3 mg/dL (0.7-1.2) H 10/05/16 17:54 Estimated GFR 48 ml/min 10/05/16 17:54 BUN/Creatinine Ratio 18.46 % 10/05/16 17:54 Glucose 130 mg/dL (65-100) H 10/05/16 17:54 POC Glucose 171 (70-105) H 10/06/16 08:07 Calcium 9.0 mg/dL (8.4-10.2) 10/05/16 17:54 Total Creatine Kinase 460 units/L (30-135) H 10/06/16 07:52 CK-MB (CK-2) 6.9 ng/mL (0.0-4.0) H 10/06/16 07:52 CK-MB (CK-2) Rel Index 1.5 (0-4) 10/06/16 07:52 Troponin T < 0.010 ng/mL (0.00-0.029) 10/06/16 07:52
[2016-10-06] MEDS ORDERED: DULCOLAX PR PRN (10:30)
[2016-10-06] MEDS ORDERED: SODIUM CHLORIDE FLUSH SYRINGE 10 ML IV PRN (10:30)
[2016-10-06] MEDS ORDERED: PHENERGAN PR PRN (10:30)
[2016-10-06] MEDS ORDERED: MILK OF MAGNESIA PO PRN (10:30)
[2016-10-06] MEDS ORDERED: REGLAN PO PRN (10:30)
--- NOTE | 2016-10-06 11:03 | Magnetic Resonance Report ---
MRA HEAD WITHOUT CONTRAST INDICATION: Stroke. COMPARISON: None similar. FINDINGS: MRA of the head performed without intravenous contrast and demonstrates no evidence of occlusion or vascular malformation. Please note that detection of aneurysms less than 5 mm is limited on this exam. Slight attenuation/narrowing of the right ICA just before entering the cavernous sinus though not excluded as on source images 44-47. Somewhat small vertebrobasilar tree caliber, though grossly patent as well, allowing for the artifact. CONCLUSION: Findings, as above. Thank you for the opportunity to participate in this patient's care.
[2016-10-06] MEDS: NORVASC PO SCH (12:25)
[2016-10-06] MEDS ORDERED: ZOCOR PO SCH (22:00)
[2016-10-06 23:43] LABS: Creatine Kinase MB 7.9 ng/mL (0.0-4.0)
[2016-10-06 23:44] LABS: Creatine Kinase 547 units/L (30-135)
[2016-10-07] MEDS: TYLENOL PO PRN ×2 (03:37→11:21)
--- NOTE | 2016-10-07 08:54 | Discharge Summary ---
Providers - Providers Date of Admission: 10/06/16 00:05 Date of discharge: 10/07/16 Attending physician: TAMMI HALLMAN 10/06/16 09:27 Physical Therapy Evaluation and Treat [CONS] Routine Comment: Reason For Exam: TIA 10/06/16 09:28 Occupational Therapy Evaluate and Treat [CONS] Routine Comment: Reason For Exam: TIA 10/06/16 10:30 Consult to Case Management [CONS] Routine Services Needed at Discharge: Home Health Services Notified:: cm notified Occupational Therapy Evaluate and Treat [CONS] Routine Comment: Reason For Exam: Neuro deficits Physical Therapy Evaluation and Treat [CONS] Routine Comment: Reason For Exam: Neuro deficits Primary care physician: [employer] SUPERVISOR Hospitalization Reason for admission: headache Condition: Stable Hospital course: This is a 76-year-old female with past medical history significant for mitral valve prolapse and glaucoma who presented to the emergency department with complaints of headache. Patient stated that she was previously seen here on 01/09 with symptoms of blindness to her right eye that lasted for approximately 15 minutes. Patient appeared to have symptoms related to amaurosis fugax from a likely TIA. Patient was evaluated with CT scan of the head initially that was found to be negative. Patient also underwent MRI and echocardiogram that were both also essentially normal. However, patient was noted to have right internal carotid stenosis of 50-79%. Therefore, vascular surgery consultation was obtained. Patient will follow-up [place] surgery as an outpatient. Patient was advised to take aspirin for secondary stroke prevention however stated that she had some hemorrhaging to the eye which may prevent her from taking aspirin. Patient stated that she will follow-up with her organizational development specialist. Patient is felt to have received maximal hospital benefit. Dedicated discharge time 31 minutes. Disposition: DC- TO HOME OR SELFCARE Time spent for discharge: 31 - Discharge Diagnoses (1) Hypertensive urgency Status: Acute (2) TIA (transient ischemic attack) Status: Acute Qualifiers: Transient cerebral ischemia type: unspecified Qualified Code(s): G45.9 - Transient cerebral ischemic attack, unspecified (3) Transient visual loss of right eye Status: Acute (4) Uncontrolled hypertension Status: Acute Core Measure Documentation - Palliative Care Palliative Care/ Comfort Measures: Not Applicable - Core Measures Any of the following diagnoses?: none Exam - Constitutional Vitals: Temp Pulse Resp BP Pulse Ox 97.7 F 84 18 172/82 100 10/07/16 04:00 10/07/16 04:00 10/07/16 04:00 10/07/16 04:00 10/07/16 04:00 General appearance: Present: no acute distress, well-nourished - EENT Eyes: Present: PERRL ENT: hearing intact, clear oral mucosa - Neck Neck: Present: supple, normal ROM - Respiratory Respiratory effort: normal Respiratory: bilateral: CTA - Cardiovascular Heart Sounds: Present: S1 & S2. Absent: rub, click - Extremities Extremities: pulses symmetrical, No edema Peripheral Pulses: within normal limits - Abdominal General gastrointestinal: Present: soft, non-tender, non-distended, normal bowel sounds Female genitourinary: Present: normal - Integumentary Integumentary: Present: clear, warm, dry - Musculoskeletal Musculoskeletal: gait normal, strength equal bilaterally - Psychiatric Psychiatric: appropriate mood/affect, intact judgment & insight - Neurologic Neurologic: CNII-XII intact, moves all extremities Plan Activity: no restrictions Weight Bearing Status: Full Weight Bearing Diet: low fat, low cholesterol, low salt Follow up with: PRIMARY MD ROSS [Primary Care Provider] - 3-5 Days MARISABEL MEDLEY MD [Staff Physician] - 7 Days Prescriptions: Aspirin [Aspirin TAB] 325 mg PO QDAY #30 tablet Simvastatin [Zocor TAB] 20 mg PO QHS #30 tablet
[2016-10-07 09:02] VITALS: BP 185/90
[2016-10-07] MEDS ORDERED: ASPIRIN PO SCH (10:00)
[2016-10-07] MEDS: NORVASC PO SCH (11:18)
--- NOTE | 2016-10-09 08:11 | Vascular Lab Report ---
CAROTID DUPLEX STUDY: RIGHT PSVEDV CCA PROX: 8620 CCA DIST: 7118 ICA PROX:96018 ICA MID:[id number] ICA DIST:[id number] ECA: 117 VERT: 96 12 LEFT PSVEDV CCA PROX:94 24 CCA DIST:[id number] ICA PROX:17643 ICA MID:05810 ICA DIST:9031 ECA: 128 VERT: 80 15 REASON FOR EXAM: TIA. COMMENTS ON THE RIGHT: Doppler frequency analysis is consistent with 50 to 79 percent diameter reduction of the internal carotid artery. Mixed density plaque encroaching on the lumen of the carotid bulb is noted. Plaque is also noted extending into the internal carotid artery. The common carotid artery is patent. The external carotid artery is patent. The vertebral artery has antegrade flow. COMMENTS ON THE LEFT: Doppler frequency analysis is consistent with 16 to 49 percent diameter reduction of the internal carotid artery. Minimal amount of plaque is seen. The common carotid artery is patent. The external carotid artery is patent. The vertebral artery has antegrade flow. IMPRESSION: 50 to 79 percent diameter reduction in the right internal carotid artery. 16 to 49 percent diameter reduction in the left internal carotid artery. Clinical correlation is recommended. Followup CTA or MRA may be required.
== END 2016-10-07 12:50 | disposition home or self-care (01) | DRG 69 ==
LOC: ED 17:21 → 4A 10-06 00:05
PROVIDERS: ADMIT Internal Medicine; ATTEND Hospitalist
DX: G45.9 Transient cerebral ischemic attack, unspecified (principal); H53.121 Transient visual loss, right eye; I16.0 Hypertensive urgency; I10 Essential (primary) hypertension; H40.9 Unspecified glaucoma; E11.9 Type 2 diabetes mellitus without complications; M19.90 Unspecified osteoarthritis, unspecified site; I34.1 Nonrheumatic mitral (valve) prolapse; Z88.0 Allergy status to penicillin; Z88.8 Allergy status to other drugs, medicaments and biological substances; Z91.040 Latex allergy status; Z91.012 Allergy to eggs; Z91.041 Radiographic dye allergy status; Z98.51 Tubal ligation status; Z89.421 Acquired absence of other right toe(s)
CPT/HCPCS: 36415; 70450; 70544; 70551; 80048; 80061; 82550; 82553; 82962; 84484; 85025; 85610; 85652; 85670; 85730; 93306; 93880; 96374; 99285; G8987-GO; G8988-GO; G8989-GO; J1815

== ENCOUNTER 2017-06-01 13:06 | Outpatient (CLI) | payer MEDICARE ==
[2017-06-01 13:22] LABS: Hematocrit 37.7 % (30.3-42.9); Hemoglobin 12.6 gm/dl (10.1-14.3)
[2017-06-01 13:45] LABS: Albumin 3.9 g/dL (3.9-5); Calcium 9.1 mg/dL (8.4-10.2); Uric Acid 6.2 mg/dL (3.5-7.6)
[2017-06-01 13:59] LABS: Creatinine,Urine 30.7 mg/dL (0.1-20.0); Protein/Creatinine Ratio,Urine 0.26
== END 2017-06-01 13:07 | disposition home or self-care (01) ==
LOC: LAB 13:06
PROVIDERS: ATTEND Internal Medicine Nephrology
DX: I12.9 Hypertensive chronic kidney disease with stage 1 through stage 4 chronic kidney disease, or unspecified chronic kidney disease (principal); N18.3 Chronic kidney disease, stage 3 (moderate); E11.22 Type 2 diabetes mellitus with diabetic chronic kidney disease; D63.1 Anemia in chronic kidney disease; N17.9 Acute kidney failure, unspecified; E87.2 Acidosis; R80.9 Proteinuria, unspecified; R60.9 Edema, unspecified
CPT/HCPCS: 36415; 80048; 82040; 82570; 84100; 84156; 84550; 85014; 85018

== ENCOUNTER 2017-06-05 09:26 | Outpatient (CLI) | payer MEDICARE ==
[2017-06-05 09:42] LABS: Hematocrit 37.9 % (30.3-42.9); Hemoglobin 12.5 gm/dl (10.1-14.3); Mean Corpuscular HGB Conc 33 % (30-34); Mean Corpuscular Hemoglobin 29 pg (28-32); Mean Corpuscular Volume 89 fl (79-97); Platelet Count 241 K/mm3 (140-440); Red Blood Count 4.28 M/mm3 (3.65-5.03); Red Cell Distribution Width 13.7 % (13.2-15.2)
[2017-06-05 10:04] LABS: Albumin 3.8 g/dL (3.9-5); Calcium 9.2 mg/dL (8.4-10.2); Chol/HDL Ratio 3.89 %
== END 2017-06-05 09:27 | disposition home or self-care (01) ==
LOC: LAB 09:26
PROVIDERS: ATTEND Specialist
DX: E11.21 Type 2 diabetes mellitus with diabetic nephropathy (principal); I10 Essential (primary) hypertension; Z79.899 Other long term (current) drug therapy
CPT/HCPCS: 36415; 80053; 80061; 83036; 85027

== ENCOUNTER 2017-09-10 12:58 | Emergency (ER) | payer MEDICARE ==
[2017-09-10 13:36] VITALS: BP 155/66
[2017-09-10 15:11] LABS: Basophils # (Auto) 0.1 K/mm3 (0.0-0.1); Basophils % (Auto) 2.3 % (0.0-1.8); Eosinophils # (Auto) 0.2 K/mm3 (0.0-0.4); Hematocrit 36.3 % (30.3-42.9); Hemoglobin 12.6 gm/dl (10.1-14.3); Lymphocytes # (Auto) 1.6 K/mm3 (1.2-5.4); Lymphocytes % (Auto) 28.1 % (13.4-35.0); Mean Corpuscular HGB Conc 35 % (30-34); Mean Corpuscular Hemoglobin 32 pg (28-32); Mean Corpuscular Volume 91 fl (79-97); Monocytes # (Auto) 0.6 K/mm3 (0.0-0.8); Monocytes % (Auto) 10.4 % (0.0-7.3); Platelet Count 262 K/mm3 (140-440); Red Cell Distribution Width 12.9 % (13.2-15.2)
[2017-09-10 15:23] LABS: Bacteria,Urine 1+ /HPF (Negative); Bilirubin,Urine NEG (Negative); Blood,Urine NEG (Negative); Color,Urine Straw (Yellow); Protein,Urine <15 mg/dL mg/dL (Negative); Urobilinogen,Urine < 2.0 mg/dL (<2.0)
[2017-09-10 15:24] LABS: Albumin 4.3 g/dL (3.9-5); Calcium 9.4 mg/dL (8.4-10.2)
== END 2017-09-10 18:35 | disposition left against medical advice (07) ==
LOC: ED 12:58
DX: M79.1 Myalgia (principal); Z53.21 Procedure and treatment not carried out due to patient leaving prior to being seen by health care provider
CPT/HCPCS: 36415; 80053; 81001; 85025; 93005; 93010

== ENCOUNTER 2017-09-11 14:10 | Emergency (ER) | payer MEDICARE ==
[2017-09-11 14:24] VITALS: BP 136/66
== END 2017-09-11 20:10 | disposition left against medical advice (07) ==
LOC: ED 14:10
DX: M79.1 Myalgia (principal); Z53.21 Procedure and treatment not carried out due to patient leaving prior to being seen by health care provider

== ENCOUNTER 2018-04-14 11:25 | Emergency (ER) | payer MEDICARE ==
[2018-04-14 11:42] VITALS: BP 194/92
[2018-04-14] MEDS ORDERED: NACL 0.9% 1000 ML 1,000 ML IV ONE (11:42)
[2018-04-14 12:55] LABS: Basophils # (Auto) 0.1 K/mm3 (0.0-0.1); Basophils % (Auto) 1.8 % (0.0-1.8); Eosinophils % (Auto) 0.7 % (0.0-4.3); Hematocrit 38.6 % (30.3-42.9); Hemoglobin 13.1 gm/dl (10.1-14.3); Lymphocytes # (Auto) 1.6 K/mm3 (1.2-5.4); Lymphocytes % (Auto) 32.8 % (13.4-35.0); Mean Corpuscular HGB Conc 34 % (30-34); Mean Corpuscular Volume 91 fl (79-97); Monocytes # (Auto) 0.3 K/mm3 (0.0-0.8); Monocytes % (Auto) 7.1 % (0.0-7.3); Platelet Count 246 K/mm3 (140-440); Red Blood Count 4.26 M/mm3 (3.65-5.03); Red Cell Distribution Width 12.8 % (13.2-15.2)
[2018-04-14 13:14] LABS: Albumin 4.1 g/dL (3.9-5); Calcium 9.4 mg/dL (8.4-10.2)
--- NOTE | 2018-04-14 13:27 | Emergency Department Report ---
ED General Adult HPI - General Chief complaint: Abdominal Pain Stated complaint: DIZZY/NO BOWEL MOVEMENT Time Seen by Provider: 04/14/18 13:11 Source: patient Mode of arrival: Ambulatory Limitations: No Limitations, Physical Limitation - History of Present Illness Initial comments: Patient is a 77-year-old asthmatic female states she has not had a good bowel movement in approximately 2 weeks. Patient states a week ago she did manually disimpact herself. Patient states she only got a small amount out. Patient denies any abdominal pain and is passing flatus. Patient denies any chest pain shortness of breath fevers chills nausea vomiting or diarrhea. Patient states she does urinate frequency but she states it's secondary to a pressure-like sen sation from a large amount of stool in her rectum. - Related Data Home Medications Medication Instructions Recorded Confirmed Last Taken traMADol [Ultram 50 MG tab] 50 mg PO Q4HR PRN 03/13/13 03/13/13 Unknown Previous Rx's Medication Instructions Recorded Last Taken Type HYDROcodone/ACETAMINOPHEN [[place] 1 each PO Q6HR PRN #20 tablet 03/13/13 Unknown Rx 5/325 Tablet] Aspirin EC [Aspirin Enteric Coated 325 mg PO QDAY #30 tablet. 10/03/16 Unknown Rx TAB] amLODIPine [Norvasc] 5 mg PO DAILY #30 tab 10/03/16 Unknown Rx Aspirin [Aspirin TAB] 325 mg PO QDAY #30 tablet 10/07/16 Unknown Rx Simvastatin (Nf) [Zocor TAB] 20 mg PO QHS #30 tablet 10/07/16 Unknown Rx Amlodipine Besylate [Norvasc] 5 mg PO DAILY #30 tablet 04/14/18 Unknown Rx Docusate Sodium [Colace] 100 mg PO BID #60 capsule 04/14/18 Unknown Rx Allergies Allergy/AdvReac Type Severity Reaction Status Date / Time gabapentin Allergy Unknown Verified 10/19/15 12:55 glipizide Allergy Shortness Verified 10/19/15 12:55 of Breath latex Allergy Swelling Verified 11/02/15 22:12 Penicillins Allergy Unknown Verified 10/19/15 12:54 sulfamethoxazole Allergy Itching Verified 10/19/15 12:54 [From Bactrim] trimethoprim [From Bactrim] Allergy Itching Verified 10/19/15 12:54 egg AdvReac Vomiting Verified 10/19/15 12:54 iv contrast Allergy Itching Uncoded 10/19/15 12:54 ED Review of Systems ROS: Stated complaint: DIZZY/NO BOWEL MOVEMENT Other details as noted in HPI Comment: All other systems reviewed and negative ED Past Medical Hx - Past Medical History Hx Hypertension: Yes Hx Diabetes: Yes Hx Arthritis: Yes Hx Kidney Stones: Yes Additional medical history: mitral valve prolapse, cyst in breast. GLAUCOMA - Surgical History Past Surgical History?: Yes Additional Surgical History: tubal, R pinky toe amputated - Social History Smoking Status: Never Smoker Substance Use Type: None - Medications Home Medications: Home Medications Medication Instructions Recorded Confirmed Last Taken Type HYDROcodone/ACETAMINOPHEN [[place] 1 each PO Q6HR PRN #20 tablet 03/13/13 Unknown Rx 5/325 Tablet] traMADol [Ultram 50 MG tab] 50 mg PO Q4HR PRN 03/13/13 03/13/13 Unknown History Aspirin EC [Aspirin Enteric Coated 325 mg PO QDAY #30 tablet. 10/03/16 Unknown Rx TAB] amLODIPine [Norvasc] 5 mg PO DAILY #30 tab 10/03/16 Unknown Rx Aspirin [Aspirin TAB] 325 mg PO QDAY #30 tablet 10/07/16 Unknown Rx Simvastatin (Nf) [Zocor TAB] 20 mg PO QHS #30 tablet 10/07/16 Unknown Rx Amlodipine Besylate [Norvasc] 5 mg PO DAILY #30 tablet 04/14/18 Unknown Rx Docusate Sodium [Colace] 100 mg PO BID #60 capsule 04/14/18 Unknown Rx ED Physical Exam - General Limitations: No Limitations, Physical Limitation General appearance: alert, in no apparent distress - Head Head exam: Present: atraumatic, normocephalic - Eye Eye exam: Present: normal appearance - ENT ENT exam: Present: mucous membranes moist - Neck Neck exam: Present: normal inspection - Respiratory Respiratory exam: Present: normal lung sounds bilaterally. Absent: respiratory distress, wheezes, rales, rhonchi - Cardiovascular Cardiovascular Exam: Present: regular rate, normal rhythm. Absent: systolic murmur, diastolic murmur, rubs, gallop - GI/Abdominal GI/Abdominal exam: Present: soft, normal bowel sounds. Absent: distended, tenderness, guarding, rebound - Extremities Exam Extremities exam: Present: normal inspection - Back Exam Back exam: Present: normal inspection - Neurological Exam Neurological exam: Present: alert, oriented X3 - Psychiatric Psychiatric exam: Present: normal affect, normal mood - Skin Skin exam: Present: warm, dry, intact, normal color. Absent: rash ED Course Vital Signs 04/14/18 11:40 Temperature 97.7 F Pulse Rate 93 H Respiratory 18 Rate Blood Pressure 194/92 O2 Sat by Pulse 100 Oximetry ED Medical Decision Making - Lab Data Result diagrams: 04/14/18 12:39 04/14/18 12:39 - Medical Decision Making Patient has been moved to a private room. Patient received a enema and will be discharged home. Critical care attestation.: If time is entered above; I have spent that time in minutes in the direct care of this critically ill patient, excluding procedure time. ED Disposition Clinical Impression: Constipation Qualifiers: Constipation type: slow transit constipation Qualified Code(s): K59.01 - Slow transit constipation Hypertension Qualifiers: Hypertension type: unspecified Qualified Code(s): I10 - Essential (primary) hypertension Disposition: - TO HOME OR SELFCARE Is pt being admited?: No Does the pt Need Aspirin: No Condition: Stable Instructions: Hypertension (ED), Constipation (ED), High Fiber Diet (ED) Referrals: HUE JAY MD [Primary Care Provider] - 3-5 Days Time of Disposition: 13:28
[2018-04-14] MEDS ORDERED: PEPCID PO ONE (13:39)
== END 2018-04-14 15:00 | disposition home or self-care (01) ==
LOC: ED 11:25
DX: K59.00 Constipation, unspecified (principal); I10 Essential (primary) hypertension
CPT/HCPCS: 36415; 80053; 82962; 85025

== ENCOUNTER 2018-04-26 19:43 | Emergency (ER) | payer MEDICARE ==
--- NOTE | 2018-04-26 20:10 | Emergency Department Report ---
Chief Complaint: Abdominal Pain Stated Complaint: CONSTIPATION Time Seen by Provider: 04/26/18 20:04 - HPI History of Present Illness: Pt c/o constipation that began a couple of weeks ago she states she last had a BM two days ago says she was seen in the ED recently for same problem and had a manual enema (+) bloating no abdominal pain, no V/D pt has an appointment to see GI next week Pt states that she fell yesterday while she was mopping she fell out of a chair and states that she "lona her head" she states she is having frontal and occipital JALLOH no unilateral weakness, no numbness MSE complete MSE screening note: Focused history and physical exam performed. ED Disposition for MSE Condition: Stable Instructions: Abdominal Pain (ED)
[2018-04-26 20:45] LABS: Alanine Aminotransferase 30 units/L (7-56); Albumin 4.3 g/dL (3.9-5); BUN/Creatinine Ratio 13; Blood Urea Nitrogen 14 mg/dL (7-17); Calcium 9.3 mg/dL (8.4-10.2); Hemolysis Index 8
[2018-04-26 20:47] LABS: Bilirubin,Direct < 0.2 mg/dL (0-0.2)
[2018-04-26 20:48] LABS: Basophils # (Auto) 0.1 K/mm3 (0.0-0.1); Basophils % (Auto) 2.3 % (0.0-1.8); Eosinophils # (Auto) 0.1 K/mm3 (0.0-0.4); Eosinophils % (Auto) 1.2 % (0.0-4.3); Hematocrit 37.3 % (30.3-42.9); Hemoglobin 12.6 gm/dl (10.1-14.3); Lymphocytes # (Auto) 1.5 K/mm3 (1.2-5.4); Lymphocytes % (Auto) 30.6 % (13.4-35.0); Mean Corpuscular HGB Conc 34 % (30-34); Mean Corpuscular Volume 91 fl (79-97); Monocytes # (Auto) 0.4 K/mm3 (0.0-0.8); Monocytes % (Auto) 8.4 % (0.0-7.3); Platelet Count 265 K/mm3 (140-440); Red Blood Count 4.11 M/mm3 (3.65-5.03); Red Cell Distribution Width 12.9 % (13.2-15.2)
[2018-04-26 20:51] LABS: INR 0.87 (0.87-1.13)
--- NOTE | 2018-04-26 21:15 | Cat Scan Report ---
PROCEDURE: CT HEAD/BRAIN WO CON TECHNIQUE: CT images of the head were obtained without the use of IV contrast HISTORY: ground level fall, JALLOH COMPARISONS: None available FINDINGS: There is diffuse prominence of the ventricular system, which could be related to central atrophy. Tem poral horns do not appear dilated out of proportion to the rest of the ventricular system. There is n o CT evidence of intracranial mass, acute hemorrhage, or acute territorial infarction. Calvarium is i ntact. Paranasal sinuses and mastoids are aerated. IMPRESSION: No CT evidence of acute abnormality. This document is electronically signed by Kamila Holland MD., April 26 2018 09:13:17 PM ET
--- NOTE | 2018-04-26 21:36 | XRay Report ---
PROCEDURE: XR ABDOMEN 1V AP HISTORY: Abdominal Pain FINDINGS: Supine view the abdomen was acquired. There is cardiomegaly. Air is seen within nondistended loops of small bowel and large bowel. There is no bowel obstruction. Stool is seen throughout the colon. The patient appears mildly constipated. IMPRESSION: No bowel obstruction Constipation This document is electronically signed by Ameya Tran MD., April 26 2018 09:34:05 PM ET
[2018-04-26] MEDS ORDERED: FLEET PR ONE (22:10)
[2018-04-26] MEDS ORDERED: CATAPRES ONE (23:11)
[2018-04-26 23:17] LABS: Bilirubin,Urine NEG (Negative); Blood,Urine NEG (Negative); Color,Urine Colorless (Yellow); Protein,Urine <15 mg/dL mg/dL (Negative); RBC,Urine < 1.0 /HPF (0.0-6.0); Urobilinogen,Urine < 2.0 mg/dL (<2.0)
[2018-04-26] MEDS ORDERED: CATAPRES PO ONE (23:17)
--- NOTE | 2018-04-26 23:20 | Emergency Department Report ---
ED General Adult HPI - General Chief complaint: Abdominal Pain Stated complaint: CONSTIPATION Time Seen by Provider: 04/26/18 20:04 Source: patient Mode of arrival: Ambulatory Limitations: Physical Limitation - History of Present Illness Initial comments: 77-year-old female presents to be with complaint of constipation. Patient has been seen previously for same complaint. States she has small bowel movement today, last bowel movement was a few days ago. Patient denies abdominal pain, nausea, vomiting. Patient reports dizziness when straining and attempting to have a bowel movement. Patient has appointment next week with paste mixer liquid, currently taking stool softeners. Patient also states she fell yesterday, onto her bottom, when the chair slipped from underneath her. Patient did not hit her head, however, states her head felt "lona." -: days(s) (3) Severity scale (0 -10): 0 Consistency: intermittent Improves with: other (enema) Worsens with: none Associated Symptoms: denies: fever/chills, nausea/vomiting - Related Data Home Medications Medication Instructions Recorded Confirmed Last Taken traMADol [Ultram 50 MG tab] 50 mg PO Q4HR PRN 03/13/13 03/13/13 Unknown Previous Rx's Medication Instructions Recorded Last Taken Type HYDROcodone/ACETAMINOPHEN [[place] 1 each PO Q6HR PRN #20 tablet 03/13/13 Unknown Rx 5/325 Tablet] Aspirin EC [Aspirin Enteric Coated 325 mg PO QDAY #30 tablet. 10/03/16 Unknown Rx TAB] amLODIPine [Norvasc] 5 mg PO DAILY #30 tab 10/03/16 Unknown Rx Aspirin [Aspirin TAB] 325 mg PO QDAY #30 tablet 10/07/16 Unknown Rx Simvastatin (Nf) [Zocor TAB] 20 mg PO QHS #30 tablet 10/07/16 Unknown Rx Amlodipine Besylate [Norvasc] 5 mg PO DAILY #30 tablet 04/14/18 Unknown Rx Docusate Sodium [Colace] 100 mg PO BID #60 capsule 04/14/18 Unknown Rx Allergies Allergy/AdvReac Type Severity Reaction Status Date / Time gabapentin Allergy Unknown Verified 10/19/15 12:55 glipizide Allergy Shortness Verified 10/19/15 12:55 of Breath latex Allergy Swelling Verified 11/02/15 22:12 Penicillins Allergy Unknown Verified 10/19/15 12:54 sulfamethoxazole Allergy Itching Verified 10/19/15 12:54 [From Bactrim] trimethoprim [From Bactrim] Allergy Itching Verified 10/19/15 12:54 egg AdvReac Vomiting Verified 10/19/15 12:54 iv contrast Allergy Itching Uncoded 10/19/15 12:54 ED Review of Systems ROS: Stated complaint: CONSTIPATION Other details as noted in HPI Comment: All other systems reviewed and negative Constitutional: denies: chills, fever Respiratory: denies: shortness of breath Cardiovascular: denies: chest pain Gastrointestinal: constipation. denies: abdominal pain, nausea, vomiting, diarrhea Neurological: denies: headache ED Past Medical Hx - Past Medical History Hx Hypertension: Yes Hx Diabetes: Yes Hx Arthritis: Yes Hx Kidney Stones: Yes Additional medical history: mitral valve prolapse, cyst in breast. GLAUCOMA - Surgical History Additional Surgical History: tubal, R pinky toe amputated - Social History Smoking Status: Unknown if ever smoked Substance Use Type: None - Medications Home Medications: Home Medications Medication Instructions Recorded Confirmed Last Taken Type HYDROcodone/ACETAMINOPHEN [[place] 1 each PO Q6HR PRN #20 tablet 03/13/13 Unknown Rx 5/325 Tablet] traMADol [Ultram 50 MG tab] 50 mg PO Q4HR PRN 03/13/13 03/13/13 Unknown History Aspirin EC [Aspirin Enteric Coated 325 mg PO QDAY #30 tablet. 10/03/16 Unknown Rx TAB] amLODIPine [Norvasc] 5 mg PO DAILY #30 tab 10/03/16 Unknown Rx Aspirin [Aspirin TAB] 325 mg PO QDAY #30 tablet 10/07/16 Unknown Rx Simvastatin (Nf) [Zocor TAB] 20 mg PO QHS #30 tablet 10/07/16 Unknown Rx Amlodipine Besylate [Norvasc] 5 mg PO DAILY #30 tablet 04/14/18 Unknown Rx Docusate Sodium [Colace] 100 mg PO BID #60 capsule 04/14/18 Unknown Rx ED Physical Exam - General Limitations: Physical Limitation General appearance: alert, in no apparent distress - Head Head exam: Present: atraumatic, normocephalic - Eye Eye exam: Present: normal appearance - ENT ENT exam: Present: mucous membranes moist - Neck Neck exam: Present: normal inspection - Respiratory Respiratory exam: Present: normal lung sounds bilaterally. Absent: respiratory distress - Cardiovascular Cardiovascular Exam: Present: regular rate, normal rhythm - GI/Abdominal GI/Abdominal exam: Present: soft. Absent: distended, tenderness - Extremities Exam Extremities exam: Present: normal inspection - Neurological Exam Neurological exam: Present: alert, oriented X3 - Psychiatric Psychiatric exam: Present: normal affect, normal mood - Skin Skin exam: Present: warm, dry, intact, normal color ED Course Vital Signs 04/26/18 04/26/18 04/26/18 20:05 21:00 23:10 Temperature 97.9 F 98.1 F Pulse Rate 98 H 85 86 Respiratory 18 16 14 Rate Blood Pressure 172/85 Blood Pressure 181/96 194/108 [Left] O2 Sat by Pulse 99 100 100 Oximetry 04/26/18 04/26/18 23:24 23:46 Temperature 98.2 F Pulse Rate 84 87 Respiratory 16 Rate Blood Pressure 194/103 Blood Pressure 178/82 [Left] O2 Sat by Pulse 99 Oximetry - Reevaluation(s) Reevaluation #1: 04/26/18 23:19 Enema given. Patient passed stool. ED Medical Decision Making - Lab Data Result diagrams: 04/26/18 20:13 04/26/18 20:13 - Radiology Data Radiology results: report reviewed, image reviewed - Medical Decision Making 77-year-old female with constipation. Abdominal series confirms, no evidence of bowel obstruction. She was given an enema here in ED and did produce stool. Patient states she is feeling much better. Advised to follow with paste mixer liquid next week. CT head negative. Labs unremarkable. Will discharge at this time. Return precautions given. - Differential Diagnosis constipation, bowel obstruction Critical care attestation.: If time is entered above; I have spent that time in minutes in the direct care of this critically ill patient, excluding procedure time. ED Disposition Clinical Impression: Constipation, Head injury, Fall, Hypertension Disposition: -01 TO HOME OR SELFCARE Is pt being admited?: No Condition: Stable Instructions: Constipation (ED), High Fiber Diet (ED), Hypertension (ED) Referrals: KAREN BRENNAN MD [Primary Care Provider] - 3-5 Days PRIMARY CARE, [Referring] - 3-5 Days Time of Disposition: 23:18
[2018-04-26 23:48] VITALS: BP 178/82
== END 2018-04-27 00:03 | disposition home or self-care (01) ==
LOC: ED 19:43
DX: S09.90XA Unspecified injury of head, initial encounter (principal); K59.00 Constipation, unspecified; I10 Essential (primary) hypertension; E11.9 Type 2 diabetes mellitus without complications; M19.90 Unspecified osteoarthritis, unspecified site; Z79.82 Long term (current) use of aspirin; Z88.0 Allergy status to penicillin; Z88.2 Allergy status to sulfonamides; Z88.8 Allergy status to other drugs, medicaments and biological substances; Z88.1 Allergy status to other antibiotic agents; Z91.041 Radiographic dye allergy status; Z91.012 Allergy to eggs; Z91.040 Latex allergy status; W07.XXXA Fall from chair, initial encounter; Y93.89 Activity, other specified; Y92.89 Other specified places as the place of occurrence of the external cause; Y99.8 Other external cause status
CPT/HCPCS: 36415; 70450; 74018; 80048; 80076; 81001; 83690; 85025; 85610; 99284

== ENCOUNTER 2018-05-10 08:47 | Outpatient (CLI) | payer MEDICARE ==
[2018-05-10 09:23] LABS: Hematocrit 39.3 % (30.3-42.9); Hemoglobin 13.1 gm/dl (10.1-14.3); Mean Corpuscular HGB Conc 33 % (30-34); Mean Corpuscular Volume 91 fl (79-97); Platelet Count 280 K/mm3 (140-440); Red Blood Count 4.33 M/mm3 (3.65-5.03); Red Cell Distribution Width 12.8 % (13.2-15.2)
[2018-05-10 09:38] LABS: Albumin 4.1 g/dL (3.9-5); Calcium 9.1 mg/dL (8.4-10.2); Chol/HDL Ratio 3.79 %
[2018-05-10 10:41] LABS: Bacteria,Urine 1+ /HPF (Negative); Bilirubin,Urine NEG (Negative); Blood,Urine NEG (Negative); Color,Urine Straw (Yellow); Hyaline Casts,Urine 8 /LPF; Protein,Urine <15 mg/dL mg/dL (Negative); RBC,Urine < 1.0 /HPF (0.0-6.0); Urobilinogen,Urine < 2.0 mg/dL (<2.0)
[2018-05-10 15:59] LABS: Creatinine,Urine 53.5 mg/dL (0.1-20.0); Microalbumin/Creatinine Ratio 87.8 ug/mg
== END 2018-05-10 08:48 | disposition home or self-care (01) ==
LOC: LAB 08:47
PROVIDERS: ATTEND Specialist
DX: E11.65 Type 2 diabetes mellitus with hyperglycemia (principal); I10 Essential (primary) hypertension; M19.90 Unspecified osteoarthritis, unspecified site
CPT/HCPCS: 36415; 80053; 80061; 81001; 82043; 83036; 85027

== ENCOUNTER 2018-06-27 16:23 | Emergency (ER) | payer MEDICARE | END 2018-06-27 17:30 | disposition left against medical advice (07) | LOC: ED 16:23 | DX: R10.9 Unspecified abdominal pain (principal); Z53.21 Procedure and treatment not carried out due to patient leaving prior to being seen by health care provider ==

== ENCOUNTER 2018-07-15 11:45 | Inpatient (IN) | payer MEDICARE ==
--- NOTE | 2018-07-15 12:02 | Emergency Department Report ---
Blank Doc - Documentation Documentation: 77 y o ld female presents to ED cc of abd soreness at mid,epigastric region x [facility] GI doctor cant specify why shes here states she also fell at home some days ago and has blisters to her left leg, ambulating well with walker BAsic labs ACC eval
[2018-07-15] MEDS ORDERED: NORCO 5/325 PO ONE (12:32)
[2018-07-15] MEDS ORDERED: ANTIVERT PO ONE (12:33)
[2018-07-15 12:36] LABS: Basophils # (Auto) 0.1 K/mm3 (0.0-0.1); Basophils % (Auto) 1.3 % (0.0-1.8); Eosinophils # (Auto) 0.1 K/mm3 (0.0-0.4); Eosinophils % (Auto) 1.5 % (0.0-4.3); Hematocrit 34.6 % (30.3-42.9); Hemoglobin 11.6 gm/dl (10.1-14.3); Lymphocytes # (Auto) 1.3 K/mm3 (1.2-5.4); Lymphocytes % (Auto) 27.2 % (13.4-35.0); Mean Corpuscular HGB Conc 33 % (30-34); Mean Corpuscular Volume 92 fl (79-97); Monocytes # (Auto) 0.5 K/mm3 (0.0-0.8); Monocytes % (Auto) 9.8 % (0.0-7.3); Platelet Count 258 K/mm3 (140-440); Red Blood Count 3.76 M/mm3 (3.65-5.03); Red Cell Distribution Width 13.1 % (13.2-15.2)
--- NOTE | 2018-07-15 12:43 | Emergency Department Report ---
HPI - General Chief Complaint: Abdominal Pain Time Seen by Provider: 07/15/18 11:57 - HPI HPI: Room 5 The patient is a 77-year-old female presented with a chief complaint of dizziness and left leg pain. The patient is a poor historian but admits to dizz iness and headache intermittently for several months. He states the dizziness increased over the past week. The patient states last night she also felt blister on her left leg. Patient states she hit her family physician today for the dizziness and left leg pain and was subsequently sent to the ED for further evaluation. Patient admits to a fall days ago prompting her to come to the ED for evaluation, but states she did not injure her left leg during the incident. The patient gives her pain a score of 10/10 Location: [See above] Duration: [See above] Quality: [See above] Severity: [See above] Modifying factors: [see above] Context: [see above] Mode of transportation: [not driving] ED Past Medical Hx - Past Medical History Previous Medical History?: Yes Hx Hypertension: Yes (Not on medication) Hx Diabetes: Yes Hx Renal Disease: Yes Hx Arthritis: Yes Hx Kidney Stones: Yes Additional medical history: mitral valve prolapse, cyst in breast. Cataract - Surgical History Past Surgical History?: Yes Additional Surgical History: Bilateral tubal ligation, R pinky toe surgery - Family History Family history: no significant - Social History Smoking Status: Never Smoker Substance Use Type: None - Medications Home Medications: Home Medications Medication Instructions Recorded Confirmed Last Taken Type HYDROcodone/ACETAMINOPHEN [[place] 1 each PO Q6HR PRN #20 tablet 03/13/13 Unknown Rx 5/325 Tablet] traMADol [Ultram 50 MG tab] 50 mg PO Q4HR PRN 03/13/13 03/13/13 Unknown History Aspirin EC 325 mg PO QDAY #30 tablet. 10/03/16 Unknown Rx amLODIPine [Norvasc] 5 mg PO DAILY #30 tab 10/03/16 Unknown Rx Aspirin 325 mg PO QDAY #30 tablet 10/07/16 Unknown Rx Simvastatin (Nf) [Zocor TAB] 20 mg PO QHS #30 tablet 10/07/16 Unknown Rx Docusate Sodium [Colace] 100 mg PO BID #60 capsule 04/14/18 Unknown Rx Amlodipine Besylate [Norvasc] 5 mg PO DAILY #30 tablet 07/09/18 Unknown Rx ED Review of Systems ROS: Stated complaint: ABD PAIN/LEG PAIN/DIZZY Other details as noted in HPI Constitutional: denies: fever Eyes: denies: eye pain ENT: denies: throat pain Respiratory: no symptoms reported Cardiovascular: denies: chest pain Endocrine: no symptoms reported Gastrointestinal: abdominal pain, constipation. denies: nausea, vomiting Genitourinary: denies: dysuria Musculoskeletal: denies: back pain Neurological: headache, other (dizziness) Physical Exam - Physical Exam Vital Signs: Vital Signs 07/15/18 11:56 Temperature 97.7 F Pulse Rate 89 Respiratory 20 Rate Blood Pressure 148/70 O2 Sat by Pulse 100 Oximetry Physical Exam: GENERAL: The patient is well-developed well-nourished female lying on stretcher not appearing to be in acute distress. [] HEENT: Normocephalic. Atraumatic. Extraocular motions are intact. Patient has moist mucous membranes. NECK: Supple. Trachea midline CHEST/LUNGS: Clear to auscultation. There is no respiratory distress noted. HEART/CARDIOVASCULAR: Regular. There is no tachycardia. There is no gallop rub or murmur. ABDOMEN: Abdomen is soft, with mild discomfort to palpation in midepigastric region. There is no rebound or guarding. Patient has normal bowel sounds. There is no abdominal distention. SKIN: There is no rash. There is no edema. There is no diaphoresis. NEURO: The patient is awake, alert, and oriented. The patient is cooperative. The patient has no focal neurologic deficits. The patient has normal speech. Cranial nerves II through XII grossly intact, no drift MUSCULOSKELETAL: There is no evidence of acute injury. ED Course Vital Signs 07/15/18 11:56 Temperature 97.7 F Pulse Rate 89 Respiratory 20 Rate Blood Pressure 148/70 O2 Sat by Pulse 100 Oximetry - Consultations Consultation #1: 07/15/18 18:[address] Olivera- recommends initiating antibiotic and admitting the patient overnight ED Medical Decision Making - Lab Data Result diagrams: 07/15/18 12:09 07/15/18 12:09 Laboratory Tests 07/15/18 07/15/18 07/15/18 12:09 12:09 14:14 WBC 4.8 RBC 3.76 Hgb 11.6 Hct 34.6 MCV 92 MCH 31 MCHC 33 RDW 13.1 L Plt Count 258 Lymph % (Auto) 27.2 [place] % (Auto) 9.8 H Eos % (Auto) 1.5 Baso % (Auto) 1.3 Lymph # 1.3 [place] # 0.5 Eos # 0.1 Baso # 0.1 Seg Neutrophils % 60.2 Seg Neutrophils # 2.9 Sodium 137 Potassium 5.0 Chloride 99.7 Carbon Dioxide 25 Anion Gap 17 BUN 24 H Creatinine 1.3 H Estimated GFR 48 BUN/Creatinine Ratio 18 Glucose 197 H POC Glucose Calcium 9.2 Total Bilirubin 0.20 AST 35 ALT 33 Alkaline Phosphatase 143 H Total Creatine Kinase 299 H CK-MB (CK-2) 7.0 H CK-MB (CK-2) Rel Index 2.3 Troponin T < 0.010 Total Protein 7.2 Albumin 4.1 Albumin/Globulin Ratio 1.3 Lipase 34 Urine Color Straw Urine Turbidity Clear Urine pH 7.0 Ur Specific [place] 1.005 Urine Protein <15 mg/dl Urine Glucose (UA) 50 Urine Ketones Neg Urine Blood Neg Urine Nitrite Neg Urine Bilirubin Neg Urine Urobilinogen < 2.0 Ur Leukocyte Esterase Neg Urine WBC (Auto) 1.0 Urine RBC (Auto) 2.0 U Epithel Cells (Auto) < 1.0 07/15/18 07/15/18 15:54 18:50 WBC RBC Hgb Hct MCV MCH MCHC RDW Plt Count Lymph % (Auto) [place] % (Auto) Eos % (Auto) Baso % (Auto) Lymph # [place] # Eos # Baso # Seg Neutrophils % Seg Neutrophils # Sodium Potassium Chloride Carbon Dioxide Anion Gap BUN Creatinine Estimated GFR BUN/Creatinine Ratio Glucose POC Glucose 115 H 121 H Calcium Total Bilirubin AST ALT Alkaline Phosphatase Total Creatine Kinase CK-MB (CK-2) CK-MB (CK-2) Rel Index Troponin T Total Protein Albumin Albumin/Globulin Ratio Lipase Urine Color Urine Turbidity Urine pH Ur Specific [place] Urine Protein Urine Glucose (UA) Urine Ketones Urine Blood Urine Nitrite Urine Bilirubin Urine Urobilinogen Ur Leukocyte Esterase Urine WBC (Auto) Urine RBC (Auto) U Epithel Cells (Auto) - Radiology Data Radiology results: report reviewed (left tib-fib x-ray, CT abdomen and pelvis, CT head), image reviewed (left tib-fib x-ray, CT abdomen and pelvis, CT head) interpreted by me: Left tib-fib x-ray-no acute fracture [address] [address] XRay Report Signed Patient: SYD IRVIN MR#: [id number] : 1940 Acct:[id number] Age/Sex: 77 / F ADM Date: 07/15/18 Loc: ED Attending Dr: Ordering Physician: SAMANTHA MERRITT MD Date of Service: 07/15/18 Procedure(s): XR tibia fibula 2V LT Accession Number(s): [id number] cc: SAMANTHA MERRITT MD Fluoro Time In Minutes: LEFT TIBIA/FIBULA, 2 views: History: Pain. Mild osteopenia is noted. No evidence for fracture, bony destruction or bone lesion. The joint spaces are unremarkable. The soft tissues are mildly edematous distally. IMPRESSION: Mild soft tissue swelling. Osteopenia. Transcribed By: TTR Dictated By: LEILANI LOPES JR, MD Electronically Authenticated By: LEILANI LOPES JR, MD Signed Date/Time: 07/15/18 1250 DD/ 1249 TD/TT: 07/15/[address] [address] Cat Scan Report Signed Patient: SYD IRVIN MR#: [id number] : 1940 Acct:[id number] Age/Sex: 77 / F ADM Date: 07/15/18 Loc: ED Attending Dr: Ordering Physician: SAMANTHA MERRITT MD Date of Service: 07/15/18 Procedure(s): CT abdomen pelvis wo con Accession Number(s): [id number] cc: SAMANTHA MERRITT MD PROCEDURE: CT ABDOMEN PELVIS WO CON TECHNIQUE: Computerized axial tomography of the abdomen and pelvis was performed without intravenous contrast. This study is performed without intravascular contrast material and its sensitivity for abdominal and pelvic pathology, including neoplasms, inflammation, abscess, free fluid, thrombosis, arterial dissection and infarction, is reduced compared with a contrast enhanced study. CT DOSE LENGTH PRODUCT: 1296.6 mGy-cm. HISTORY: epigastric abdominal pain COMPARISONS: None currently available. FINDINGS: Abdomen: Lung bases and images of the heart are grossly unremarkable. Liver, gallbladder, stomach, spleen, pancreas, adrenals, and kidneys are unremarkable. No hydronephrosis. No nephroureteral stones. No aneurysm. No significant atherosclerotic disease. IVC is unremarkable. There is no periaortic or retroperitoneal adenopathy or mass. Ygzy-[id number]-[id number] stool. More moderate stool in the right colon. No wall thickening or inflammatory changes. Terminal ileum is unremarkable. Appendix is normal. Small bowel loops are unremarkable. No obstructive pattern. No air-fluid levels. No free air. No free fluid. Mesentery is unremarkable. Pelvis: Uterus: Limited images are unremarkable. Calcifications in the right uterus. Bladder: Distended. No wall thickening. No stones. There is no pelvic mass or adenopathy. Inguinal regions are unremarkable. Bones: No suspicious osseous lesions on this limited examination of the skeleton. Metastatic disease better evaluated with bone scan. Degenerative changes are in the spine. IMPRESSION: * Possible fibroid uterus. * Possible constipation. * Otherwise, no acute bowel findings. This document is electronically signed by Sukhdev rGaham MD., Jul 15 2018 02:52:30 PM ET Transcribed By: TYM Dictated By: SUKHDEV GRAHAM MD Electronically Authenticated By: SUKHDEV GRAHAM MD Signed Date/Time: 07/15/18 1454 DD/ 141 TD/TT: 07/15/18 1411 [facility] [address] [place] [address] Cat Scan Report Signed Patient: SYD IRVIN MR#: [id number] : 1940 Acct:[id number] Age/Sex: 77 / F ADM Date: 07/15/18 Loc: ED Attending Dr: Ordering Physician: SAMANTHA MERRITT MD Date of Service: 07/15/18 Procedure(s): CT head/brain wo con Accession Number(s): [id number] cc: SAMANTHA MERRITT MD PROCEDURE: CT HEAD/BRAIN WO CON TECHNIQUE: Computerized tomography of the head was performed without contrast material. CT DOSE LENGTH PRODUCT: 920.5 mGycm HISTORY: dizziness, headache COMPARISONS: 04/26/2018 . FINDINGS: No acute air-fluid level visualized in the included air-filled sinuses. Bone windows demonstrate no acute fracture. There is ventricular and sulcal prominence compatible with age-appropriate global cerebrocortical atrophy. The brain contains no mass, mass effect, hemorrhage, or acute infarct. There is no extra- axial intracranial bleed, brain bleed, or midline shift. IMPRESSION: No acute CVA, intracranial bleed, or brain mass This document is electronically signed by Torrey Landrum MD., Jul 15 2018 02:15:19 PM ET Transcribed By: SACHIN Dictated By: TORREY LANRDUM MD Electronically Authenticated By: TORREY LANDRUM MD Signed Date/Time: 07/15/181416 DD/ 10 TD/TT: 07/15/181410 - Differential Diagnosis vertigo, ICH, dehydration, DVT, occult fracture Critical care attestation.: If time is entered above; I have spent that time in minutes in the direct care of this critically ill patient, excluding procedure time. ED Disposition Clinical Impression: Peripheral arterial disease, Left leg pain Disposition: DC-09 OP ADMIT IP TO THIS HOSP Is pt being admited?: Yes Does the pt Need Aspirin: Yes Condition: Fair Instructions: Abdominal Pain (ED) Referrals: PRIMARY CARE, [Primary Care Provider] - 3-5 Days Time of Disposition: 18:48 (hospitalist paged (Dr Colon))
--- NOTE | 2018-07-15 12:55 | XRay Report ---
LEFT TIBIA/FIBULA, 2 views: History: Pain. Mild osteopenia is noted. No evidence for fracture, bony destruction or bone lesion. The joint spaces are unremarkable. The soft tissues are mildly edematous distally. IMPRESSION: Mild soft tissue swelling. Osteopenia.
[2018-07-15 13:07] LABS: Alanine Aminotransferase 33 units/L (7-56); Albumin 4.1 g/dL (3.9-5); BUN/Creatinine Ratio 18; Blood Urea Nitrogen 24 mg/dL (7-17); Calcium 9.2 mg/dL (8.4-10.2); Hemolysis Index 8
--- NOTE | 2018-07-15 14:17 | Cat Scan Report ---
PROCEDURE: CT HEAD/BRAIN WO CON TECHNIQUE: Computerized tomography of the head was performed without contrast material. CT DOSE LENGTH PRODUCT: 920.5 mGycm HISTORY: dizziness, headache COMPARISONS: 04/26/2018 . FINDINGS: No acute air-fluid level visualized in the included air-filled sinuses. Bone windows demonstrate no acute fracture. There is ventricular and sulcal prominence compatible with age-appropriate global cerebrocortical atr ophy. The brain contains no mass, mass effect, hemorrhage, or acute infarct. There is no extra-axial intracranial bleed, brain bleed, or midline shift. IMPRESSION: No acute CVA, intracranial bleed, or brain mass This document is electronically signed by Torrey Landrum MD., Jul 15 2018 02:15:19 PM ET
[2018-07-15 14:30] LABS: Bilirubin,Urine NEG (Negative); Blood,Urine NEG (Negative); Color,Urine Straw (Yellow); Protein,Urine <15 mg/dL mg/dL (Negative); Urobilinogen,Urine < 2.0 mg/dL (<2.0)
--- NOTE | 2018-07-15 14:54 | Cat Scan Report ---
PROCEDURE: CT ABDOMEN PELVIS WO CON TECHNIQUE: Computerized axial tomography of the abdomen and pelvis was performed without intravenous contrast. This study is performed without intravascular contrast material and its sensitivity for abd ominal and pelvic pathology, including neoplasms, inflammation, abscess, free fluid, thrombosis, christopher rial dissection and infarction, is reduced compared with a contrast enhanced study. CT DOSE LENGTH PRODUCT: 1296.6 mGy-cm. HISTORY: epigastric abdominal pain COMPARISONS: None currently available. FINDINGS: Abdomen: Lung bases and images of the heart are grossly unremarkable. Liver, gallbladder, stomach, spleen, pancreas, adrenals, and kidneys are unremarkable. No hydronephro sis. No nephroureteral stones. No aneurysm. No significant atherosclerotic disease. IVC is unremarkable. There is no periaortic or retroperitoneal adenopathy or mass. Ajqe-ts-pmgfchyd stool. More moderate stool in the right colon. No wall thickening or inflammatory ch anges. Terminal ileum is unremarkable. Appendix is normal. Small bowel loops are unremarkable. No obstructive pattern. No air-fluid levels. No free air. No free fluid. Mesentery is unremarkable. Pelvis: Uterus: Limited images are unremarkable. Calcifications in the right uterus. Bladder: Distended. No wall thickening. No stones. There is no pelvic mass or adenopathy. Inguinal regions are unremarkable. Bones: No suspicious osseous lesions on this limited examination of the skeleton. Metastatic disease better evaluated with bone scan. Degenerative changes are in the spine. IMPRESSION: * Possible fibroid uterus. * Possible constipation. * Otherwise, no acute bowel findings. This document is electronically signed by Sukhdev Salomon MD., Jul 15 2018 02:52:30 PM ET
--- NOTE | 2018-07-15 16:42 | Vascular Lab Report ---
PROCEDURE: VL VENOUS DUPLEX LE LT TECHNIQUE: Grayscale, color flow and Doppler waveform imaging of the deep venous structures of the l eft lower extremity was performed. HISTORY: pain left lower extremity pain and blisters. COMPARISONS: None FINDINGS: There is demonstration of normal compression and normal phasic flow in the deep venous structures of the left lower extremity from the common femoral vein to the popliteal vein. There is demonstration of normal compression of the posterior tibial and peroneal veins. IMPRESSION: 1. No ultrasound evidence of deep venous thrombosis left lower extremity. This document is electronically signed by Lizette Sanchez MD., Jul 15 2018 04:40:11 PM ET
--- NOTE | 2018-07-15 16:54 | Vascular Lab Report ---
PROCEDURE: VL ARTERIAL DUPLEX LE LT TECHNIQUE: Grayscale, color flow and Doppler waveform imaging of the arterial structures of the left lower extremity from the common femoral artery to the posterior tibial and anterior tibial arteries. HISTORY: pain COMPARISONS: None FINDINGS: There are biphasic waveforms from the common femoral artery through the proximal superficial femoral artery. There are monophasic waveforms from the mid superficial femoral artery through the posterior tibial a nd anterior tibial arteries. Peak systolic velocities are as follows (centimeters per second): Proximal common femoral artery 189 Distal common femoral artery 148 Proximal superficial femoral artery 39 Deep femoral artery 143 Mid superficial femoral artery 9 Distal superficial femoral artery 28 Proximal popliteal artery 49 Posterior tibial artery 65 Anterior tibial artery 28 IMPRESSION: 1. Diffuse atherosclerotic vascular disease in the left lower extremity with evidence of a high-grade stenosis in the mid superficial femoral artery. If further imaging is required, CT angiogram or MR angiogram may be helpful. Alternatively if there i s plan for intervention conventional angiography may be helpful. The above findings and recommendation were discussed with Dr. Knott at 4:50 PM July 15, 2018. This document is electronically signed by Lizette Sanchez MD., Jul 15 2018 04:52:59 PM ET
[2018-07-15 18:30] VITALS: BP 155/84
[2018-07-15] MEDS ORDERED: ASPIRIN PO ONE (18:48)
[2018-07-15] MEDS ORDERED: LEVAQUIN PO ONE (18:57)
--- NOTE | 2018-07-16 08:42 | Event Note ---
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
== END 2018-07-15 20:35 | disposition home or self-care (01) | DRG 301 ==
LOC: ED 11:45 → 2B-ACE 18:58
PROVIDERS: ADMIT Internal Medicine; ATTEND Internal Medicine
DX: I70.291 Other atherosclerosis of native arteries of extremities, right leg (principal); I10 Essential (primary) hypertension; M19.90 Unspecified osteoarthritis, unspecified site; E11.51 Type 2 diabetes mellitus with diabetic peripheral angiopathy without gangrene; Z87.442 Personal history of urinary calculi; Z95.4 Presence of other heart-valve replacement; Z98.51 Tubal ligation status; Z79.899 Other long term (current) drug therapy; Z79.82 Long term (current) use of aspirin
CPT/HCPCS: 36415; 70450; 74176; 80053; 81001; 82550; 82553; 82962; 83690; 84484; 85025; G0378

== ENCOUNTER 2018-08-02 14:16 | Emergency (ER) | payer MEDICARE ==
--- NOTE | 2018-08-02 14:20 | Emergency Department Report ---
Blank Doc - Documentation Documentation: This is a 77-year-old female that presents with chest pain and was sent by PCP for abnormal EKG. This initial assessment/diagnostic orders/clinical plan/treatment(s) is/are subject to change based on patient's health status, clinical progression and re- assessment by fellow clinical providers in the ED. Further treatment and workup at subsequent clinical providers discretion. Patient/guardians urged not to elope from the ED as their condition may be serious if not clinically assessed and managed. Initial orders include: 1- Patient sent to MAIN ED for further evaluation and treatment 2- labs 3- EKG 4- CXR
--- NOTE | 2018-08-02 15:03 | XRay Report ---
ROUTINE CHEST, TWO VIEWS: HISTORY: chest pain. The trachea, heart, mediastinal contour, lung vital and bony thorax are unremarkable. IMPRESSION: Unremarkable chest x-ray.
[2018-08-02 15:08] LABS: Basophils # (Auto) 0.1 K/mm3 (0.0-0.1); Basophils % (Auto) 1.3 % (0.0-1.8); Eosinophils # (Auto) 0.1 K/mm3 (0.0-0.4); Eosinophils % (Auto) 1.2 % (0.0-4.3); Hematocrit 33.3 % (30.3-42.9); Hemoglobin 11.5 gm/dl (10.1-14.3); Lymphocytes # (Auto) 1.5 K/mm3 (1.2-5.4); Lymphocytes % (Auto) 28.5 % (13.4-35.0); Mean Corpuscular HGB Conc 34 % (30-34); Mean Corpuscular Volume 91 fl (79-97); Monocytes # (Auto) 0.5 K/mm3 (0.0-0.8); Platelet Count 293 K/mm3 (140-440); Red Blood Count 3.67 M/mm3 (3.65-5.03); Red Cell Distribution Width 12.9 % (13.2-15.2)
[2018-08-02 15:18] LABS: INR 0.93 (0.87-1.13)
[2018-08-02 15:19] LABS: Partial Thromboplastin Time 26.5 Sec. (24.2-36.6)
[2018-08-02 15:31] LABS: BUN/Creatinine Ratio 9; Blood Urea Nitrogen 13 mg/dL (7-17); Calcium 9.3 mg/dL (8.4-10.2); Hemolysis Index 8
[2018-08-02] MEDS ORDERED: NORCO 5/325 PO ONE (18:09)
[2018-08-02 18:23] VITALS: BP 188/86
--- NOTE | 2018-08-02 19:01 | Emergency Department Report ---
ED Chest Pain HPI - General Chief Complaint: Chest Pain Stated Complaint: EKG ABNORMAL Time Seen by Provider: 08/02/18 14:19 Source: patient Mode of arrival: Ambulatory Limitations: No Limitations - History of Present Illness Initial Comments: 77 year old female with a past medical history of hypertension, diabetes, renal insufficiency, arthritis, and mitral valve prolapse presents to the hospital complaining of intermittent substernal chest pain. Patient describes as a soreness that worsens with palpation and cough. Patient has had a dry cough and runny nose without fever. She is also been on amlodipine for the past 20 days and thinks that her symptoms are due to an adverse reaction to the medication. She was seen by her primary care doctor Dr. Teresa Selby 3 days ago and was advised to come to the hospital due to EKG changes. Upon EMS arrival to the office patient elected not to be transported to the hospital and decided to drive. She instead went home because her symptoms improved. Patient states that since yesterday she has had the chest soreness, cough, and some mild intermittent shortness of breath. She also states that she is having bad reflux with reflux of gastric contents to her throat and nose. Patient has been prescribed Zantac but she is not taking it because she states it has not helped in the past. Patient denies leg edema, calf tenderness or current shortness of breath. No reports of nausea, vomiting, or diaphoresis. Severity scale (0 -10): 8 - Related Data Home Medications Medication Instructions Recorded Confirmed Last Taken Aspirin [Adult Aspirin] 81 mg PO DAILY 07/15/18 07/15/18 Unknown Previous Rx's Medication Instructions Recorded Last Taken Type Amlodipine Besylate [Norvasc] 5 mg PO DAILY #30 tablet 07/09/18 Unknown Rx Benzonatate [Tessalon Perles] 100 mg PO Q8HR PRN #20 capsule 08/02/18 Unknown Rx Mag Hydrox/Aluminum Hyd/Simeth 20 ml PO QID PRN #1 bottle 08/02/18 Unknown Rx [Maalox Advanced Suspension] Ranitidine HCl [Zantac] 150 mg PO BID #30 tablet 08/02/18 Unknown Rx traMADol [Ultram 50 MG tab] 50 mg PO Q6HR PRN #15 tablet 08/02/18 Unknown Rx Allergies Allergy/AdvReac Type Severity Reaction Status Date / Time gabapentin Allergy Unknown Verified 08/02/18 14:22 glipizide Allergy Shortness Verified 08/02/18 14:22 of Breath latex Allergy Swelling Verified 08/02/18 14:22 Penicillins Allergy Unknown Verified 08/02/18 14:22 sulfamethoxazole Allergy Itching Verified 08/02/18 14:22 [From Bactrim] trimethoprim [From Bactrim] Allergy Itching Verified 08/02/18 14:22 egg AdvReac Vomiting Verified 08/02/18 14:22 iv contrast Allergy Itching Uncoded 10/19/15 12:54 Heart Score - HEART Score History: Slightly suspicious EKG: Normal Age: > 65 Risk factors: 1-2 risk factors Troponin: < normal limit HEART Score: 3 ED Review of Systems ROS: Stated complaint: EKG ABNORMAL Other details as noted in HPI ED Past Medical Hx - Past Medical History Hx Hypertension: Yes (Not on medication) Hx Diabetes: Yes Hx Renal Disease: Yes Hx Arthritis: Yes Hx Kidney Stones: Yes Additional medical history: mitral valve prolapse, cyst in breast. Cataract - Surgical History Additional Surgical History: Bilateral tubal ligation, R pinky toe surgery - Social History Smoking Status: Never Smoker Substance Use Type: None - Medications Home Medications: Home Medications Medication Instructions Recorded Confirmed Last Taken Type Amlodipine Besylate [Norvasc] 5 mg PO DAILY #30 tablet 07/09/18 07/15/18 Unknown Rx Aspirin [Adult Aspirin] 81 mg PO DAILY 07/15/18 07/15/18 Unknown History Benzonatate [Tessalon Perles] 100 mg PO Q8HR PRN #20 capsule 08/02/18 Unknown Rx Mag Hydrox/Aluminum Hyd/Simeth 20 ml PO QID PRN #1 bottle 08/02/18 Unknown Rx [Maalox Advanced Suspension] Ranitidine HCl [Zantac] 150 mg PO BID #30 tablet 08/02/18 Unknown Rx traMADol [Ultram 50 MG tab] 50 mg PO Q6HR PRN #15 tablet 08/02/18 Unknown Rx ED Physical Exam - General Limitations: No Limitations ED Course Vital Signs 08/02/18 08/02/18 08/02/18 14:20 18:21 18:23 Temperature 98.2 F 97.7 F Pulse Rate 94 H 93 H Respiratory 18 13 13 Rate Blood Pressure 175/95 Blood Pressure 188/86 [Left] O2 Sat by Pulse 100 100 Oximetry DAYTON score - [place] Score Age > 65: (0) No Aspirin use within the Past 7 Days: (0) No 3 or more CAD Risk Factors: (0) No 2 or more Angina events in past 24 hrs: (0) No Known CAD with more than 50% Stenosis: (0) No Elevated Cardiac Markers: (0) No ST Deviation Greater than 0.5mm: (0) No [place] Score: 0 ED Medical Decision Making - Lab Data Result diagrams: 08/02/18 14:49 08/02/18 14:49 Lab Results 08/02/18 08/02/18 08/02/18 Range/Units 14:49 14:49 14:49 WBC 5.4 (4.5-11.0) K/mm3 RBC 3.67 (3.65-5.03) M/mm3 Hgb 11.5 (10.1-14.3) gm/dl Hct 33.3 (30.3-42.9) % MCV 91 (79-97) fl MCH 31 (28-32) pg MCHC 34 (30-34) % RDW 12.9 L (13.2-15.2) % Plt Count 293 (140-440) K/mm3 Lymph % (Auto) 28.5 (13.4-35.0) % [place] % (Auto) 10.0 H (0.0-7.3) % Eos % (Auto) 1.2 (0.0-4.3) % Baso % (Auto) 1.3 (0.0-1.8) % Lymph # 1.5 (1.2-5.4) K/mm3 [place] # 0.5 (0.0-0.8) K/mm3 Eos # 0.1 (0.0-0.4) K/mm3 Baso # 0.1 (0.0-0.1) K/mm3 Seg Neutrophils % 59.0 (40.0-70.0) % Seg Neutrophils # 3.2 (1.8-7.7) K/mm3 PT 13.0 (12.2-14.9) Sec. INR 0.93 (0.87-1.13) APTT 26.5 (24.2-36.6) Sec. Sodium 138 (137-145) mmol/L Potassium 4.6 (3.6-5.0) mmol/L Chloride 101.1 (98-107) mmol/L Carbon Dioxide 26 (22-30) mmol/L Anion Gap 16 mmol/L BUN 13 (7-17) mg/dL Creatinine 1.4 H (0.7-1.2) mg/dL Estimated GFR 44 ml/min BUN/Creatinine Ratio 9 % Glucose 210 H (65-100) mg/dL Calcium 9.3 (8.4-10.2) mg/dL Troponin T < 0.010 (0.00-0.029) ng/mL 08/02/18 Range/Units 17:24 WBC (4.5-11.0) K/mm3 RBC (3.65-5.03) M/mm3 Hgb (10.1-14.3) gm/dl Hct (30.3-42.9) % MCV (79-97) fl MCH (28-32) pg MCHC (30-34) % RDW (13.2-15.2) % Plt Count (140-440) K/mm3 Lymph % (Auto) (13.4-35.0) % [place] % (Auto) (0.0-7.3) % Eos % (Auto) (0.0-4.3) % Baso % (Auto) (0.0-1.8) % Lymph # (1.2-5.4) K/mm3 [place] # (0.0-0.8) K/mm3 Eos # (0.0-0.4) K/mm3 Baso # (0.0-0.1) K/mm3 Seg Neutrophils % (40.0-70.0) % Seg Neutrophils # (1.8-7.7) K/mm3 PT (12.2-14.9) Sec. INR (0.87-1.13) APTT (24.2-36.6) Sec. Sodium (137-145) mmol/L Potassium (3.6-5.0) mmol/L Chloride (98-107) mmol/L Carbon Dioxide (22-30) mmol/L Anion Gap mmol/L BUN (7-17) mg/dL Creatinine (0.7-1.2) mg/dL Estimated GFR ml/min BUN/Creatinine Ratio % Glucose (65-100) mg/dL Calcium (8.4-10.2) mg/dL Troponin T < 0.010 (0.00-0.029) ng/mL - EKG Data -: EKG Interpreted by Me EKG shows normal: sinus rhythm, axis (qrs 22), QRS complexes (qrs 76), ST-T wave s (no stemi) Rate: normal - EKG Data When compared to previous EKG there are: no significant change 08/02/18 19:24 repeat ekg unchanged - Radiology Data Radiology results: report reviewed ROUTINE CHEST, TWO VIEWS: HISTORY: chest pain. The trachea, heart, mediastinal contour, lung vital and bony thorax are unremarkable. IMPRESSION: Unremarkable chest x-ray. - Medical Decision Making Patient has a HEART score of 3 and states that her mother had a history of heart attack at age 69, she was never smoker, and does not have high cholesterol. She also states she does not have elevated hypertension and her blood pressures is high when she goes to the doctor and her medication for blood pressure was just initiated. Patient was encouraged to continue medication because cough is not listed as an adverse reaction to Norvasc and her blood pressure is elevated here today. She can follow-up with her primary care doctor for further blood pressure medication management. The pain does not appear to be cardiac since it is reproducible at the mid and upper sternum and associated with cough and movement. Patient has a normal EKG that is unchanged from previous and unchanged in the ED 2 and 2 negative troponins. Patient was treated with [place] for pain/cough. Chest x-ray does not reveal any acute abnormality. Patient be discharged to follow-up with her doctor. - Differential Diagnosis gerd, costochondritis, UT, unstable angina, pneumonia Critical Care Time: No Critical care attestation.: If time is entered above; I have spent that time in minutes in the direct care of this critically ill patient, excluding procedure time. ED Disposition Clinical Impression: Cough, Costochondritis, Hypertension, CRI (chronic renal insufficiency), Hypertensive urgency, GERD (gastroesophageal reflux disease) Disposition: - TO HOME OR SELFCARE Is pt being admited?: No Does the pt Need Aspirin: No Condition: Stable Instructions: Hypertension (ED), Cold Symptoms (ED), Costochondritis (ED), Gastroesophageal Reflux Disease (ED) Additional Instructions: Take the medication as prescribed. Follow up with your doctor or the clinic/doctor provided. Called the cosmetology professor's office provided for follow-up in the next 3-5 days. Return if symptoms worsen as indicated by your discharge instructions Prescriptions: Mag Hydrox/Aluminum Hyd/Simeth [Maalox Advanced Suspension] 20 ml PO QID PRN #1 bottle PRN Reason: Indigestion Benzonatate [Tessalon Perles] 100 mg PO Q8HR PRN #20 capsule PRN Reason: Cough traMADol [Ultram 50 MG tab] 50 mg PO Q6HR PRN #15 tablet PRN Reason: Pain Ranitidine HCl [Zantac] 150 mg PO BID #30 tablet Referrals: TERESA SELBY MD [Staff Physician] - 3-5 Days SOFIA PACHECO MD [Staff Physician] - 3-5 Days ([employer]) Time of Disposition: 19:20
== END 2018-08-02 20:55 | disposition home or self-care (01) ==
LOC: ED 14:16
DX: M94.0 Chondrocostal junction syndrome [Tietze] (principal); I12.9 Hypertensive chronic kidney disease with stage 1 through stage 4 chronic kidney disease, or unspecified chronic kidney disease; E11.22 Type 2 diabetes mellitus with diabetic chronic kidney disease; N18.9 Chronic kidney disease, unspecified; I16.0 Hypertensive urgency; K21.9 Gastro-esophageal reflux disease without esophagitis; M19.90 Unspecified osteoarthritis, unspecified site; Z79.4 Long term (current) use of insulin; Z98.51 Tubal ligation status; Z79.82 Long term (current) use of aspirin; Z79.899 Other long term (current) drug therapy; Z88.0 Allergy status to penicillin; Z88.2 Allergy status to sulfonamides; Z88.8 Allergy status to other drugs, medicaments and biological substances; Z88.6 Allergy status to analgesic agent; Z88.1 Allergy status to other antibiotic agents; Z91.041 Radiographic dye allergy status; Z91.012 Allergy to eggs; Z91.040 Latex allergy status
CPT/HCPCS: 36415; 71046; 80048; 84484; 85025; 85610; 85730; 93005; 93010; 99284

== ENCOUNTER 2018-08-06 11:03 | Emergency (ER) | payer MEDICARE ==
--- NOTE | 2018-08-06 11:17 | Event Note ---
ED Screening Note ED Screening Note: cc dizziness--no hx cad/ hx tia l eye filling with fluid- eye MD 08/20 r 5th pain and swelling pmh dm htn ckd pad neuropathy cataracts pcp John This initial assessment/diagnostic orders/clinical plan/treatment(s) is/are subject to change based on patients health status, clinical progression and re-assessment by fellow clinical providers in the ED. Further treatment and workup at subsequent clinical providers discretion. Patient/guardian urged not to elope from the ED as their condition may be serious if not clinically assessed and managed. Initial orders include: ekg- trop; just seen here 4 days ago for cp and had 2 neg trop and was dc home; echo 17 ef normal--fam hx, obese, htn, dm labs to acs then reeval minor complaints of eye and finger
[2018-08-06 11:48] LABS: Hematocrit 34.3 % (30.3-42.9); Hemoglobin 11.8 gm/dl (10.1-14.3); Mean Corpuscular HGB Conc 35 % (30-34); Mean Corpuscular Volume 92 fl (79-97); Platelet Count 306 K/mm3 (140-440); Red Blood Count 3.74 M/mm3 (3.65-5.03); Red Cell Distribution Width 13.1 % (13.2-15.2)
[2018-08-06 12:10] LABS: BUN/Creatinine Ratio 12; Blood Urea Nitrogen 15 mg/dL (7-17); Calcium 9.6 mg/dL (8.4-10.2); Hemolysis Index 15
[2018-08-06 12:36] LABS: Bilirubin,Urine NEG (Negative); Blood,Urine NEG (Negative); Color,Urine Straw (Yellow); Hyaline Casts,Urine 1 /LPF; Protein,Urine <15 mg/dL mg/dL (Negative); Urobilinogen,Urine < 2.0 mg/dL (<2.0)
--- NOTE | 2018-08-06 13:17 | Emergency Department Report ---
ED General Adult HPI - General Chief complaint: Extremity Injury, Upper Stated complaint: R HAND PAIN Time Seen by Provider: 08/06/18 11:14 Source: patient Mode of arrival: Ambulatory Limitations: No Limitations - History of Present Illness Initial comments: 78-year-old female appears to be somewhat obsessed with chronic minor medical issues to include an old right finger injury. She thinks that the finger must be infected. She started into an orthopedist as soon Dr. Echols. She was found to have a fracture of the distal phalanx of the fifth finger. She has had no fever chills redness or drainage of the finger. She also complains of a dry left eye and some puffiness of her face. It would appear likely that this patient has dementia. She has been here multiple times recently. She does state that she has a primary care physician. I cannot see anything indicative of her having an new or presumably emergent complaint. -: Gradual, month(s) Consistency: intermittent Improves with: none Worsens with: none Associated Symptoms: denies other symptoms Treatments Prior to Arrival: none - Related Data Home Medications Medication Instructions Recorded Confirmed Last Taken Aspirin [Adult Aspirin] 81 mg PO DAILY 07/15/18 07/15/18 Unknown Previous Rx's Medication Instructions Recorded Last Taken Type Amlodipine Besylate [Norvasc] 5 mg PO DAILY #30 tablet 07/09/18 Unknown Rx Benzonatate [Tessalon Perles] 100 mg PO Q8HR PRN #20 capsule 08/02/18 Unknown Rx Mag Hydrox/Aluminum Hyd/Simeth 20 ml PO QID PRN #1 bottle 08/02/18 Unknown Rx [Maalox Advanced Suspension] Ranitidine HCl [Zantac] 150 mg PO BID #30 tablet 08/02/18 Unknown Rx traMADol [Ultram 50 MG tab] 50 mg PO Q6HR PRN #15 tablet 08/02/18 Unknown Rx Allergies Allergy/AdvReac Type Severity Reaction Status Date / Time gabapentin Allergy Unknown Verified 08/02/18 14:22 glipizide Allergy Shortness Verified 08/02/18 14:22 of Breath latex Allergy Swelling Verified 08/02/18 14:22 Penicillins Allergy Unknown Verified 08/02/18 14:22 sulfamethoxazole Allergy Itching Verified 08/02/18 14:22 [From Bactrim] trimethoprim [From Bactrim] Allergy Itching Verified 08/02/18 14:22 egg AdvReac Vomiting Verified 08/02/18 14:22 iv contrast Allergy Itching Uncoded 10/19/15 12:54 ED Review of Systems ROS: Stated complaint: R HAND PAIN Other details as noted in HPI Constitutional: denies: chills, fever Eyes: as per HPI (try eyes). denies: eye pain, eye discharge, vision change ENT: denies: ear pain, throat pain Respiratory: denies: cough, shortness of breath, wheezing Cardiovascular: denies: chest pain, palpitations Endocrine: no symptoms reported Gastrointestinal: denies: abdominal pain, nausea, diarrhea Genitourinary: denies: urgency, dysuria, discharge Musculoskeletal: denies: back pain, joint swelling, arthralgia Skin: denies: rash, lesions Neurological: denies: headache, weakness, paresthesias Psychiatric: denies: anxiety, depression Hematological/Lymphatic: denies: easy bleeding, easy bruising ED Past Medical Hx - Past Medical History Hx Hypertension: Yes (Not on medication) Hx Diabetes: Yes Hx Renal Disease: Yes Hx Arthritis: Yes Hx Kidney Stones: Yes Additional medical history: mitral valve prolapse, cyst in breast. Cataract - Surgical History Additional Surgical History: Bilateral tubal ligation, R pinky toe surgery - Social History Smoking Status: Never Smoker Substance Use Type: None - Medications Home Medications: Home Medications Medication Instructions Recorded Confirmed Last Taken Type Amlodipine Besylate [Norvasc] 5 mg PO DAILY #30 tablet 07/09/18 07/15/18 Unknown Rx Aspirin [Adult Aspirin] 81 mg PO DAILY 07/15/18 07/15/18 Unknown History Benzonatate [Tessalon Perles] 100 mg PO Q8HR PRN #20 capsule 08/02/18 Unknown Rx Mag Hydrox/Aluminum Hyd/Simeth 20 ml PO QID PRN #1 bottle 08/02/18 Unknown Rx [Maalox Advanced Suspension] Ranitidine HCl [Zantac] 150 mg PO BID #30 tablet 08/02/18 Unknown Rx traMADol [Ultram 50 MG tab] 50 mg PO Q6HR PRN #15 tablet 08/02/18 Unknown Rx ED Physical Exam - General Limitations: No Limitations General appearance: alert, in no apparent distress - Head Head exam: Present: atraumatic, normocephalic - Eye Eye exam: Present: normal appearance, PERRL, EOMI. Absent: scleral icterus, conjunctival injection, nystagmus, periorbital swelling, periorbital tenderness - ENT ENT exam: Present: mucous membranes moist, other (upper and lower dentures) - Neck Neck exam: Present: normal inspection. Absent: tenderness, meningismus - Respiratory Respiratory exam: Present: normal lung sounds bilaterally. Absent: respiratory distress - Cardiovascular Cardiovascular Exam: Present: regular rate, normal rhythm. Absent: systolic murmur, diastolic murmur, rubs, gallop - GI/Abdominal GI/Abdominal exam: Present: soft, normal bowel sounds. Absent: distended, tenderness, guarding, rebound, rigid - Extremities Exam Extremities exam: Present: other (patient has a mallet finger deformity of her right fifth finger. There is no signs of infection. There is no swelling.) - Back Exam Back exam: Present: normal inspection - Neurological Exam Neurological exam: Present: alert, oriented X3, CN II-XII intact. Absent: motor sensory deficit - Psychiatric Psychiatric exam: Present: normal mood, flat affect - Skin Skin exam: Present: warm, dry, intact, normal color. Absent: rash ED Course Vital Signs 08/06/18 11:14 Temperature 97.6 F Pulse Rate 92 H Respiratory 16 Rate Blood Pressure 167/76 [Right] O2 Sat by Pulse 100 Oximetry - Reevaluation(s) Reevaluation #1: Patient is a type II diabetic. She has perhaps poorly controlled hypertension. She has mallet finger deformity. She has chronic complaints. She is appropriate for primary care and orthopedic follow-up. There is no indication of an acute emergency that I can see. 08/06/18 13:16 ED Medical Decision Making - Lab Data Result diagrams: 08/06/18 11:35 08/06/18 11:35 Laboratory Results - last 24 hr 08/06/18 08/06/18 08/06/18 11:35 11:35 Unknown WBC 5.7 RBC 3.74 Hgb 11.8 Hct 34.3 MCV 92 MCH 32 MCHC 35 H RDW 13.1 L Plt Count 306 Sodium 138 Potassium 4.6 Chloride 101.4 Carbon Dioxide 26 Anion Gap 15 BUN 15 Creatinine 1.3 H Estimated GFR 48 BUN/Creatinine Ratio 12 Glucose 210 H Calcium 9.6 Troponin T < 0.010 Urine Color Straw Urine Turbidity Clear Urine pH 5.0 Ur Specific [place] 1.005 Urine Protein <15 mg/dl Urine Glucose (UA) >=500 Urine Ketones Neg Urine Blood Neg Urine Nitrite Neg Urine Bilirubin Neg Urine Urobilinogen < 2.0 Ur Leukocyte Esterase Neg Urine WBC (Auto) 2.0 Urine RBC (Auto) 1.0 U Epithel Cells (Auto) < 1.0 Hyaline Casts 1 Critical care attestation.: If time is entered above; I have spent that time in minutes in the direct care of this critically ill patient, excluding procedure time. ED Disposition Clinical Impression: Mallet finger of left hand, Poorly-controlled hypertension Hyperglycemia due to type 2 diabetes mellitus Qualifiers: Diabetes mellitus mcc insulin use: without mcc use Qualified Code(s): E11.65 - Type 2 diabetes mellitus with hyperglycemia CRI (chronic renal insufficiency) Qualifiers: Chronic kidney disease stage: stage 2 (mild) Qualified Code(s): N18.2 - Chronic kidney disease, stage 2 (mild) Disposition: TO HOME OR SELFCARE Is pt being admited?: No Does the pt Need Aspirin: No Condition: Stable Instructions: Diabetes Mellitus Type 2 in Adults (ED), Finger Sprain (ED) Additional Instructions: Anticipate you have a ligamentous injury of your left index finger. This is difficult to treat. Orthopedic follow-up is recommended. See your orthopedist during concerning this. There are no signs of infection of this finger. Your high blood pressure is not fully control. This is also something that needs follow-up with her primary care provider. Referrals: PRIMARY CAREMD [Primary Care Provider] - 3-5 Days Time of Disposition: 13:19
[2018-08-06 13:41] VITALS: BP 151/75
== END 2018-08-06 13:41 | disposition home or self-care (01) ==
LOC: ED 11:03
DX: M20.012 Mallet finger of left finger(s) (principal); E11.65 Type 2 diabetes mellitus with hyperglycemia; E11.22 Type 2 diabetes mellitus with diabetic chronic kidney disease; I12.9 Hypertensive chronic kidney disease with stage 1 through stage 4 chronic kidney disease, or unspecified chronic kidney disease; N18.2 Chronic kidney disease, stage 2 (mild); M19.90 Unspecified osteoarthritis, unspecified site
CPT/HCPCS: 36415; 80048; 81001; 84484; 85027

== ENCOUNTER 2018-09-01 15:27 | Outpatient (CLI) | payer MEDICARE ==
[2018-09-01 16:12] LABS: Basophils # (Auto) 0.1 K/mm3 (0.0-0.1); Basophils % (Auto) 1.3 % (0.0-1.8); Eosinophils # (Auto) 0.1 K/mm3 (0.0-0.4); Eosinophils % (Auto) 1.5 % (0.0-4.3); Hemoglobin 12.3 gm/dl (10.1-14.3); Lymphocytes # (Auto) 1.8 K/mm3 (1.2-5.4); Lymphocytes % (Auto) 35.2 % (13.4-35.0); Mean Corpuscular HGB Conc 34 % (30-34); Mean Corpuscular Volume 91 fl (79-97); Monocytes # (Auto) 0.6 K/mm3 (0.0-0.8); Monocytes % (Auto) 11.2 % (0.0-7.3); Platelet Count 236 K/mm3 (140-440); Red Blood Count 3.95 M/mm3 (3.65-5.03); Red Cell Distribution Width 12.9 % (13.2-15.2)
[2018-09-01 16:30] LABS: Calcium 9.5 mg/dL (8.4-10.2)
== END 2018-09-01 15:28 | disposition home or self-care (01) ==
LOC: LAB 15:27
PROVIDERS: ATTEND Internal Medicine Nephrology
DX: E11.22 Type 2 diabetes mellitus with diabetic chronic kidney disease (principal); N18.3 Chronic kidney disease, stage 3 (moderate); D63.1 Anemia in chronic kidney disease; E87.2 Acidosis; R60.9 Edema, unspecified; R80.9 Proteinuria, unspecified; N17.9 Acute kidney failure, unspecified; Z71.3 Dietary counseling and surveillance
CPT/HCPCS: 36415; 80048; 82040; 83970; 84100; 85025

== ENCOUNTER 2018-12-22 12:27 | Outpatient (CLI) | payer MEDICARE ==
--- NOTE | 2018-12-22 15:13 | XRay Report ---
LUMBAR SPINE 5 VIEWS INDICATION: M54.5) LOW BACK PAIN. COMPARISON: No relevant prior imaging study available. FINDINGS: Lumbar vertebral body height is maintained. There is mild disc space narrowing at the upper lumbar sp ine. Small marginal osteophytes are noted throughout. Alignment is normal. No spondylolysis is seen o n the oblique views. There are mild degenerative changes at the SI joints. IMPRESSION: 1. No acute findings. Signer Name: Kenny Cheung MD Signed: 12/22/2018 3:08 PM Workstation Name: [id number]
== END 2018-12-22 12:28 | disposition home or self-care (01) ==
LOC: XRAY 12:27
PROVIDERS: ATTEND Orthopaedic Surgery
DX: M47.818 Spondylosis without myelopathy or radiculopathy, sacral and sacrococcygeal region (principal); M25.78 Osteophyte, vertebrae
CPT/HCPCS: 72110

== ENCOUNTER 2019-04-15 10:59 | Outpatient (CLI) | payer MEDICARE ==
[2019-04-15 12:38] LABS: Albumin 4.2 g/dL (3.9-5); Calcium 9.6 mg/dL (8.4-10.2)
[2019-04-15 13:40] LABS: Creatinine,Urine 102.5 mg/dL (0.1-20.0)
== END 2019-04-15 11:00 | disposition home or self-care (01) ==
LOC: LAB 10:59
PROVIDERS: ATTEND Internal Medicine Nephrology
DX: N18.3 Chronic kidney disease, stage 3 (moderate) (principal)
CPT/HCPCS: 36415; 80048; 82040; 82570; 83970; 84100; 84156; 84550; 85014; 85018

== ENCOUNTER 2019-04-29 09:35 | Outpatient (CLI) | payer MEDICARE ==
[2019-04-29 10:04] LABS: Hematocrit 36.5 % (30.3-42.9); Mean Corpuscular HGB Conc 33 % (30-34); Mean Corpuscular Volume 92 fl (79-97); Platelet Count 231 K/mm3 (140-440); Red Blood Count 3.96 M/mm3 (3.65-5.03)
[2019-04-29 11:12] LABS: Alanine Aminotransferase 25 units/L (7-56); Albumin 4.1 g/dL (3.9-5); BUN/Creatinine Ratio 15; Blood Urea Nitrogen 20 mg/dL (7-17); Calcium 9.4 mg/dL (8.4-10.2); Hemolysis Index 4
[2019-04-29 12:19] LABS: Creatinine,Urine 54.9 mg/dL (0.1-20.0); Microalbumin/Creatinine Ratio 85.6 ug/mg
[2019-04-29 12:31] LABS: Chol/HDL Ratio 3.6 %
== END 2019-04-29 09:36 | disposition home or self-care (01) ==
LOC: LAB 09:35
PROVIDERS: ATTEND Specialist
DX: E78.2 Mixed hyperlipidemia (principal); E11.65 Type 2 diabetes mellitus with hyperglycemia
CPT/HCPCS: 36415; 80053; 80061; 82043; 83036; 84443; 85027

== ENCOUNTER 2020-05-17 09:55 | Outpatient (CLI) | payer MEDICARE, BC ==
[2020-05-17 10:26] LABS: Hemoglobin 11.7 gm/dl (10.1-14.3)
[2020-05-17 10:50] LABS: Albumin 3.9 g/dL (3.9-5); Calcium 9.3 mg/dL (8.4-10.2); Uric Acid 7.3 mg/dL (3.5-7.6)
[2020-05-17 11:30] LABS: Creatinine,Urine 151.7 mg/dL (0.1-20.0); Protein/Creatinine Ratio,Urine 0.15
== END 2020-05-17 09:56 | disposition home or self-care (01) ==
LOC: LAB 09:55
PROVIDERS: ATTEND Internal Medicine Nephrology
DX: E11.22 Type 2 diabetes mellitus with diabetic chronic kidney disease (principal); N17.9 Acute kidney failure, unspecified; N18.30 Chronic kidney disease, stage 3 unspecified; D63.1 Anemia in chronic kidney disease; R60.9 Edema, unspecified; E87.2 Acidosis; R80.9 Proteinuria, unspecified; E66.3 Overweight; Z71.3 Dietary counseling and surveillance
CPT/HCPCS: 36415; 80048; 82040; 82570; 83970; 84100; 84156; 84550; 85014; 85018

== ENCOUNTER 2020-05-28 11:04 | Outpatient (CLI) | payer MEDICARE, BC ==
--- NOTE | 2020-05-28 14:42 | Ultrasound Report ---
Renal ultrasound INDICATION: Chronic kidney disease FINDINGS: Right kidney measures 8 cm in left kidney 10.2 cm. No hydronephrosis or mass is identified. No cortical thinning is seen in this time. Bladder appears normal. IMPRESSION: Slightly asymmetric renal size. No acute findings. Signer Name: Zach Gay MD Signed: 05/28/2020 2:38 PM Workstation Name: [id number]
[2020-05-28 15:06] LABS: Hematocrit 36.7 % (30.3-42.9); Hemoglobin 12.4 gm/dl (10.1-14.3)
[2020-05-28 15:38] LABS: Alanine Aminotransferase 23 units/L (7-56); Albumin 4.1 g/dL (3.9-5); BUN/Creatinine Ratio 11; Blood Urea Nitrogen 15 mg/dL (7-17); Calcium 9.4 mg/dL (8.4-10.2); Hemolysis Index 1; Uric Acid 5.9 mg/dL (3.5-7.6)
[2020-05-28 16:19] LABS: Creatinine,Urine 34.3 mg/dL (0.1-20.0); Protein/Creatinine Ratio,Urine 0.26
== END 2020-05-28 11:05 | disposition home or self-care (01) ==
LOC: US 11:04
PROVIDERS: ATTEND Internal Medicine Nephrology
DX: E11.22 Type 2 diabetes mellitus with diabetic chronic kidney disease (principal); N17.9 Acute kidney failure, unspecified; N18.30 Chronic kidney disease, stage 3 unspecified; D63.1 Anemia in chronic kidney disease; R80.9 Proteinuria, unspecified; R60.9 Edema, unspecified; E78.2 Mixed hyperlipidemia; E66.3 Overweight; Z71.3 Dietary counseling and surveillance
CPT/HCPCS: 36415; 76770; 80053; 82570; 83970; 84100; 84156; 84550; 85014; 85018

== ENCOUNTER 2020-06-01 11:45 | Emergency (ER) | payer MEDICARE, BC ==
[2020-06-01 12:02] VITALS: BP 171/70
--- NOTE | 2020-06-01 12:45 | Emergency Department Report ---
ED Fall HPI - General Chief Complaint: Fall Stated Complaint: LT ARM INJURY Time Seen by Provider: 06/01/20 12:25 Source: patient Mode of arrival: Ambulatory - History of Present Illness Initial Comments: 79-year-old -[place] female presents to the emergency room complaining of left arm pain status post fall yesterday. Patient denies any symptoms prior to falling. She states that she had bumped her head against the wall when she fell. She denies any loss of consciousness. She denies any nausea no vomiting no change of vision. Patient states that her left arm is painful. She denies any neck pain no back pain no leg pain. 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 Fall Witnessed: no Place Fall Occurred: home Loss of Consciousness: none Prolonged Down Time?: no Symptoms Prior to Fall: none Location - Extremities: Left: Arm, Forearm, Hand Severity: moderate Quality: aching Associated Symptoms: denies: headache, neck pain, numbness, weakness, chest pa int, shortness of breath, abdominal pain, hematuria, unable to walk, lightheaded, vertigo, confusion, other - Related Data Home Medications Medication Instructions Recorded Confirmed Last Taken Aspirin [Adult Aspirin] 81 mg PO DAILY 07/15/18 07/15/18 Unknown Previous Rx's Medication Instructions Recorded Last Taken Type Amlodipine Besylate [Norvasc] 5 mg PO DAILY #30 tablet 07/09/18 Unknown Rx Benzonatate [Tessalon Perles] 100 mg PO Q8HR PRN #20 capsule 08/02/18 Unknown Rx Mag Hydrox/Aluminum Hyd/Simeth 20 ml PO QID PRN #1 bottle 08/02/18 Unknown Rx [Maalox Advanced Suspension] raNITIdine HCl [Zantac] 150 mg PO BID #30 tablet 08/02/18 Unknown Rx traMADoL [Ultram 50 MG tab] 50 mg PO Q6HR PRN #15 tablet 08/02/18 Unknown Rx Allergies Allergy/AdvReac Type Severity Reaction Status Date / Time gabapentin Allergy Unknown Verified 08/02/18 14:22 glipizide Allergy Shortness Verified 08/02/18 14:22 of Breath latex Allergy Swelling Verified 08/02/18 14:22 Penicillins Allergy Unknown Verified 08/02/18 14:22 sulfamethoxazole Allergy Itching Verified 08/02/18 14:22 [From Bactrim] trimethoprim [From Bactrim] Allergy Itching Verified 08/02/18 14:22 egg AdvReac Vomiting Verified 08/02/18 14:22 iv contrast Allergy Itching Uncoded 10/19/15 12:54 ED Review of Systems ROS: Stated complaint: LT ARM INJURY Other details as noted in HPI Comment: All other systems reviewed and negative ED Past Medical Hx - Past Medical History Hx Hypertension: Yes (Not on medication) Hx Diabetes: Yes Hx Renal Disease: Yes Hx Arthritis: Yes Hx Kidney Stones: Yes Additional medical history: mitral valve prolapse, cyst in breast. Cataract - Surgical History Additional Surgical History: Bilateral tubal ligation, R pinky toe surgery - Social History Smoking Status: Never Smoker Substance Use Type: None - Medications Home Medications: Home Medications Medication Instructions Recorded Confirmed Last Taken Type Amlodipine Besylate [Norvasc] 5 mg PO DAILY #30 tablet 07/09/18 07/15/18 Unknown Rx Aspirin [Adult Aspirin] 81 mg PO DAILY 07/15/18 07/15/18 Unknown History Benzonatate [Tessalon Perles] 100 mg PO Q8HR PRN #20 capsule 08/02/18 Unknown Rx Mag Hydrox/Aluminum Hyd/Simeth 20 ml PO QID PRN #1 bottle 08/02/18 Unknown Rx [Maalox Advanced Suspension] raNITIdine HCl [Zantac] 150 mg PO BID #30 tablet 08/02/18 Unknown Rx traMADoL [Ultram 50 MG tab] 50 mg PO Q6HR PRN #15 tablet 08/02/18 Unknown Rx ED Physical Exam - General Limitations: Physical Limitation General appearance: alert, in no apparent distress - Head Head exam: Present: atraumatic, normocephalic - Eye Eye exam: Present: normal appearance - ENT ENT exam: Present: mucous membranes moist - Neck Neck exam: Present: normal inspection, full ROM - Respiratory Respiratory exam: Absent: accessory muscle use - Cardiovascular Cardiovascular Exam: Present: regular rate - Expanded Upper Extremity Exam Left Shoulder Exam: Present: normal inspection, full ROM Upper Arm exam: Present: full ROM, tenderness Elbow exam: Present: normal inspection, full ROM. Absent: tenderness, swelling Forearm Wrist exam: Present: full ROM, tenderness, swelling Hand Wrist exam: Present: full ROM, tenderness, swelling - Back Exam Back exam: Present: normal inspection, full ROM - Neurological Exam Neurological exam: Present: alert, oriented X3, normal gait - Psychiatric Psychiatric exam: Present: normal affect, normal mood - Skin Skin exam: Present: warm, dry, intact, normal color. Absent: rash ED Course Vital Signs 06/01/20 11:56 Temperature 97.6 F Pulse Rate 86 Respiratory 18 Rate Blood Pressure 171/70 O2 Sat by Pulse 95 Oximetry ED Medical Decision Making - Radiology Data Radiology results: report reviewed [address] [address] Cat Scan Report Signed Patient: SYD IRVIN MR#: [id number] : 1940 Acct:[id number] Age/Sex: 79 / F ADM Date: 06/01/20 Loc: ED Attending Dr: Ordering Physician: EMMA SINCLAIR Date of Service: 06/01/20 Procedure(s): CT cervical spine wo con Accession Number(s): [id number] cc: EMMA SINCLAIR . CT cervical spine wo con INDICATION: Fall hit head. TECHNIQUE: Axial CT images of the cervical spine were obtained. Sagittal and coronal reformatted images were produced. All CT scans at this location are performed using CT dose reduction for ALARA by means of automated exposure control. COMPARISON: None available. FINDINGS: ALIGNMENT: Normal alignment. VERTEBRAE: No fracture. Vertebral body heights are preserved. C1 and C2 are congruent. SPONDYLOSIS: No high-grade osseous spinal canal or foraminal stenosis. SOFT TISSUES: No significant soft tissue abnormality. ADDITIONAL FINDINGS: No significant additional findings. IMPRESSION: 1. No fracture of the cervical spine. Signer Name: Onel Bonilla MD Signed: 06/01/2020 2:50 PM Workstation Name: [id number] Transcribed By: CS Dictated By: Onel Bonilla MD Electronically Authenticated By: Onel Bonilla MD Signed Date/Time: 06/01/20 1450 DD/ 1448 TD/TT: [address] [address] Cat Scan Report Signed Patient: SYD IRVIN MR#: [id number] : 1940 Acct:[id number] Age/Sex: 79 / F ADM Date: 06/01/20 Loc: ED Attending Dr: Ordering Physician: EMMA SINCLAIR Date of Service: 06/01/20 Procedure(s): CT head/brain wo con Accession Number(s): [id number] cc: EMMA SINCLAIR CT head/brain wo con INDICATION: Fall hit head. TECHNIQUE: Routine CT head. All CT scans at this location are performed using CT dose reduction for ALARA by means of automated exposure control. COMPARISON: 04/26/2018 would not load. FINDINGS: Intracranial: Darby-white matter differentiation is maintained. No intracranial hemorrhage. No extra axial collection. Prominent ventricular caliber for the degree of sulcal prominence. No herniation. Sinuses: Paranasal sinuses and mastoid air cells are essentially clear. Orbits: Globes are intact. Calvarium: No acute fracture. IMPRESSION: 1. No acute intracranial abnormality. 2. Mildly prominent ventricular caliber which could be related to parenchymal volume loss. Normal pressure hydrocephalus is a consideration. Signer Name: Onel Bonilla MD Signed: 06/01/2020 2:48 PM Workstation Name: [id number] Transcribed By: CS Dictated By: Onel Bonilla MD Electronically Authenticated By: Onel Bonilla MD Signed Date/Time: 06/01/201447 DD/ 43 TD/TT: [facility] [address] [place] [address] XRay Report Signed Patient: SYD IRVIN MR#: [id number] : 1940 Acct:[id number] Age/Sex: 79 / F ADM Date: 06/01/20 Loc: ED Attending Dr: Ordering Physician: EMMA SINCLAIR Date of Service: 06/01/20 Procedure(s): XR wrist 3+V LT Accession Number(s): [id number] cc: EMMA SINCLAIR Fluoro Time In Minutes: HISTORY:Fall with left upper extremity injury and pain COMPARISON: None. TECHNIQUE: AP lateral and obliques views were obtained FINDINGS: Bones: No fracture or dislocation. Joint spaces: Maintained. Soft tissues: No significant abnormality. Additional findings: None. IMPRESSION: 1. No significant abnormality. Signer Name: Valentín Rader MD Signed: 06/01/2020 1:30 PM Workstation Name: [id number] Transcribed By: SHANA Dictated By: Valentín Rader MD Electronically Authenticated By: Valentín Rader MD Signed Date/Time: 06/01/201329 DD/ 29 TD/TT: [address] [address] XRay Report Signed Patient: SYD IRVIN MR#: [id number] : 1940 Acct:[id number] Age/Sex: 79 / F ADM Date: 06/01/20 Loc: ED Attending Dr: Ordering Physician: EMMA SINCLAIR Date of Service: 06/01/20 Procedure(s): XR hand 2V LT Accession Number(s): [id number] cc: EMMA SINCLAIR Fluoro Time In Minutes: HISTORY:Fall left upper extremity pain and swelling COMPARISON: None. TECHNIQUE: AP lateral and obliques views were obtained FINDINGS: Bones: No fracture or dislocation. Joint spaces: Maintained. Soft tissues: No significant abnormality. Additional findings: None. IMPRESSION: 1. No significant abnormality. Signer Name: Valentín Rader MD Signed: 06/01/2020 1:31 PM Workstation Name: [id number] Transcribed By: SHANA Dictated By: Valentín Rader MD Electronically Authenticated By: Valentín Rader MD Signed Date/Time: 06/01/201330 DD/ 29 TD/TT: [address] [address] XRay Report Signed Patient: SYD IRVIN MR#: [id number] : 1940 Acct:[id number] Age/Sex: 79 / F ADM Date: 06/01/20 Loc: ED Attending Dr: Ordering Physician: EMMA SINCLAIR Date of Service: 06/01/20 Procedure(s): XR forearm 1V LT Accession Number(s): [id number] cc: EMMA SINCLAIR Fluoro Time In Minutes: CLINICAL DATA: Fall left upper extremity pain and swelling TECHNICAL DATA: Two views were obtained, AP and lateral FINDINGS: There is no acute fracture or dislocation. The visualized joint spaces are normal. IMPRESSION: No acute radiographic abnormality. Signer Name: Valentín Rader MD Signed: 06/01/2020 1:30 PM Workstation Name: [id number] Transcribed By: SHANA Dictated By: Valentín Rader MD Electronically Authenticated By: Valentín Rader MD Signed Date/Time: 06/01/20 1330 DD/ 1329 TD/TT: Print Cancel - Medical Decision Making 79-year-old -[place] female presents to the emergency room complaining of left arm pain status post fall yesterday. Patient denies any symptoms prior to falling. She states that she had bumped her head against the wall when she fell. She denies any loss of consciousness. She denies any nausea no vomiting no change of vision. Patient states that her left arm is painful. She denies any neck pain no back pain no leg pain. CT scan are negative plain x-rays are negative. Patient discharged home instructed to take Tylenol for pain management. Follow-up with her primary care provider. Critical care attestation.: If time is entered above; I have spent that time in minutes in the direct care of this critically ill patient, excluding procedure time. ED Disposition Clinical Impression: Fall, Left wrist pain, Left hand pain Disposition: DC- TO HOME OR SELFCARE Is pt being admited?: No Does the pt Need Aspirin: No Condition: Stable Instructions: Wrist Pain, Adult, [id number] Additional Instructions: CT scan are negative plain x-rays are negative. Patient discharged home instructed to take Tylenol for pain management. Follow-up with her primary care provider. Referrals: LUIS CARLOS VILLA MD [Staff Physician] - 3-5 Days
--- NOTE | 2020-06-01 13:34 | XRay Report ---
HISTORY:Fall with left upper extremity injury and pain COMPARISON: None. TECHNIQUE: AP lateral and obliques views were obtained FINDINGS: Bones: No fracture or dislocation. Joint spaces: Maintained. Soft tissues: No significant abnormality. Additional findings: None. IMPRESSION: 1. No significant abnormality. Signer Name: Valentín Rader MD Signed: 06/01/2020 1:30 PM Workstation Name: [id number]
--- NOTE | 2020-06-01 13:34 | XRay Report ---
CLINICAL DATA: Fall left upper extremity pain and swelling TECHNICAL DATA: Two views were obtained, AP and lateral FINDINGS: There is no acute fracture or dislocation. The visualized joint spaces are normal. IMPRESSION: No acute radiographic abnormality. Signer Name: Valentín Rader MD Signed: 06/01/2020 1:30 PM Workstation Name: [id number]
--- NOTE | 2020-06-01 13:35 | XRay Report ---
HISTORY:Fall left upper extremity pain and swelling COMPARISON: None. TECHNIQUE: AP lateral and obliques views were obtained FINDINGS: Bones: No fracture or dislocation. Joint spaces: Maintained. Soft tissues: No significant abnormality. Additional findings: None. IMPRESSION: 1. No significant abnormality. Signer Name: Valentín Rader MD Signed: 06/01/2020 1:31 PM Workstation Name: [email or web address]
--- NOTE | 2020-06-01 14:52 | Cat Scan Report ---
CT head/brain wo con INDICATION: Fall hit head. TECHNIQUE: Routine CT head. All CT scans at this location are performed using CT dose reduction for A FARA by means of automated exposure control. COMPARISON: 04/26/2018 would not load. FINDINGS: Intracranial: Darby-white matter differentiation is maintained. No intracranial hemorrhage. No extra a xial collection. Prominent ventricular caliber for the degree of sulcal prominence. No herniation. Sinuses: Paranasal sinuses and mastoid air cells are essentially clear. Orbits: Globes are intact. Calvarium: No acute fracture. IMPRESSION: 1. No acute intracranial abnormality. 2. Mildly prominent ventricular caliber which could be related to parenchymal volume loss. Normal pre ssure hydrocephalus is a consideration. Signer Name: Onel Bonilla MD Signed: 06/01/2020 2:48 PM Workstation Name: [id number]
--- NOTE | 2020-06-01 14:54 | Cat Scan Report ---
. CT cervical spine wo con INDICATION: Fall hit head. TECHNIQUE: Axial CT images of the cervical spine were obtained. Sagittal and coronal reformatted images were pro duced. All CT scans at this location are performed using CT dose reduction for ALARA by means of auto mated exposure control. COMPARISON: None available. FINDINGS: ALIGNMENT: Normal alignment. VERTEBRAE: No fracture. Vertebral body heights are preserved. C1 and C2 are congruent. SPONDYLOSIS: No high-grade osseous spinal canal or foraminal stenosis. SOFT TISSUES: No significant soft tissue abnormality. ADDITIONAL FINDINGS: No significant additional findings. IMPRESSION: 1. No fracture of the cervical spine. Signer Name: Onel Bonilla MD Signed: 06/01/2020 2:50 PM Workstation Name: [email or web address]
== END 2020-06-01 17:15 | disposition home or self-care (01) ==
LOC: ED 11:45
DX: M25.532 Pain in left wrist (principal); M25.542 Pain in joints of left hand; R51.9 Headache, unspecified; I10 Essential (primary) hypertension; E11.9 Type 2 diabetes mellitus without complications; M19.91 Primary osteoarthritis, unspecified site; Z98.890 Other specified postprocedural states; Z79.899 Other long term (current) drug therapy; Z88.0 Allergy status to penicillin; Z88.8 Allergy status to other drugs, medicaments and biological substances; W19.XXXA Unspecified fall, initial encounter; Y93.89 Activity, other specified; Y92.89 Other specified places as the place of occurrence of the external cause; Y99.8 Other external cause status
CPT/HCPCS: 70450; 72125

== ENCOUNTER 2020-09-28 08:26 | Outpatient (CLI) | payer MEDICARE, BC ==
[2020-09-28 09:13] LABS: Albumin 4.1 g/dL (3.9-5); Calcium 9.7 mg/dL (8.4-10.2)
[2020-10-04 08:29] LABS: Aldo/Plasma Renin Act Ratio 17.1 Ratio (0.9-28.9)
== END 2020-09-28 08:27 | disposition home or self-care (01) ==
LOC: LAB 08:26
PROVIDERS: ATTEND Internal Medicine Nephrology
DX: N18.30 Chronic kidney disease, stage 3 unspecified (principal); N17.9 Acute kidney failure, unspecified; I15.0 Renovascular hypertension; D63.1 Anemia in chronic kidney disease; R60.9 Edema, unspecified; E87.2 Acidosis; R80.9 Proteinuria, unspecified; Z71.3 Dietary counseling and surveillance; Z91.19 Patient's noncompliance with other medical treatment and regimen; E11.22 Type 2 diabetes mellitus with diabetic chronic kidney disease
CPT/HCPCS: 36415; 80048; 82040; 82088; 84100

== ENCOUNTER 2021-02-18 08:50 | Outpatient (CLI) | payer MEDICARE, BC ==
[2021-02-18 09:50] LABS: Albumin 4.1 g/dL (3.9-5); Calcium 9.2 mg/dL (8.4-10.2)
== END 2021-02-18 08:51 | disposition home or self-care (01) ==
LOC: LAB 08:50
PROVIDERS: ATTEND Internal Medicine Nephrology
DX: E11.22 Type 2 diabetes mellitus with diabetic chronic kidney disease (principal); N18.30 Chronic kidney disease, stage 3 unspecified; N17.9 Acute kidney failure, unspecified; I16.0 Hypertensive urgency; D63.1 Anemia in chronic kidney disease; R60.9 Edema, unspecified; E87.2 Acidosis; Z91.19 Patient's noncompliance with other medical treatment and regimen; Z71.3 Dietary counseling and surveillance
CPT/HCPCS: 36415; 80048; 82040; 82088; 84100

== ENCOUNTER 2021-03-21 08:16 | Outpatient (CLI) | payer MEDICARE, BC ==
[2021-03-21 08:43] LABS: Creatinine,Urine 38.8 mg/dL (0.1-20.0); Protein/Creatinine Ratio,Urine 0.23
[2021-03-21 08:54] LABS: Basophils # (Auto) 0.1 K/mm3 (0.0-0.1); Basophils % (Auto) 2.2 % (0.0-1.8); Eosinophils # (Auto) 0.2 K/mm3 (0.0-0.4); Eosinophils % (Auto) 5.5 % (0.0-4.3); Hematocrit 36.5 % (30.3-42.9); Hemoglobin 11.6 gm/dl (10.1-14.3); Lymphocytes # (Auto) 1.6 K/mm3 (1.2-5.4); Lymphocytes % (Auto) 40.1 % (13.4-35.0); Mean Corpuscular HGB Conc 32 % (30-34); Mean Corpuscular Volume 91 fl (79-97); Monocytes # (Auto) 0.5 K/mm3 (0.0-0.8); Platelet Count 218 K/mm3 (140-440); Red Blood Count 4.03 M/mm3 (3.65-5.03); Red Cell Distribution Width 13.1 % (13.2-15.2)
[2021-03-24 15:12] LABS: Vitamin D, 25-OH, D2 <4 ng/mL
== END 2021-03-21 08:17 | disposition home or self-care (01) ==
LOC: LAB 08:16
PROVIDERS: ATTEND Internal Medicine Nephrology
DX: E11.22 Type 2 diabetes mellitus with diabetic chronic kidney disease (principal); N18.32 Chronic kidney disease, stage 3b; I15.0 Renovascular hypertension; N17.9 Acute kidney failure, unspecified; D63.1 Anemia in chronic kidney disease; R60.9 Edema, unspecified; E87.2 Acidosis; R80.9 Proteinuria, unspecified; Z91.19 Patient's noncompliance with other medical treatment and regimen
CPT/HCPCS: 36415; 82306; 82570; 83036; 83970; 84156; 85025

== ENCOUNTER 2021-09-06 12:46 | Outpatient (CLI) | payer MEDICARE, BC ==
[2021-09-06 13:33] LABS: Basophils # (Auto) 0.1 K/mm3 (0.0-0.1); Basophils % (Auto) 1.2 % (0.0-1.8); Eosinophils # (Auto) 0.1 K/mm3 (0.0-0.4); Eosinophils % (Auto) 2.1 % (0.0-4.3); Hematocrit 36.2 % (30.3-42.9); Hemoglobin 12.1 gm/dl (10.1-14.3); Lymphocytes # (Auto) 1.7 K/mm3 (1.2-5.4); Lymphocytes % (Auto) 32.1 % (13.4-35.0); Mean Corpuscular HGB Conc 33 % (30-34); Mean Corpuscular Volume 94 fl (79-97); Monocytes # (Auto) 0.5 K/mm3 (0.0-0.8); Monocytes % (Auto) 9.4 % (0.0-7.3); Platelet Count 216 K/mm3 (140-440); Red Blood Count 3.87 M/mm3 (3.65-5.03); Red Cell Distribution Width 13.2 % (13.2-15.2)
[2021-09-06 14:22] LABS: Erythrocyte Sedimentation Rate 67 mm/Hr (0-20)
[2021-09-06 14:25] LABS: Albumin 4.5 g/dL (3.9-5); Calcium 10.1 mg/dL (8.4-10.2); Uric Acid 7.1 mg/dL (3.5-7.6)
== END 2021-09-06 12:47 | disposition home or self-care (01) ==
LOC: LAB 12:46
PROVIDERS: ATTEND Orthopaedic Surgery
DX: G89.4 Chronic pain syndrome (principal); M25.59 Pain in other specified joint; M35.9 Systemic involvement of connective tissue, unspecified
CPT/HCPCS: 36415; 80053; 84550; 85025; 85652; 86038; 86431

== ENCOUNTER 2021-11-12 08:39 | Outpatient (CLI) | payer MEDICARE, BC ==
--- NOTE | 2021-11-12 10:55 | Vascular Lab Report ---
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 TECHNIQUE: Arterial duplex examination of both lower extremities performed using B-mode, color flow and spectral Doppler assessment. FINDINGS: There are moderate scattered atherosclerotic plaques in both lower extremity arterial structures, mor e so on the left side. RIGHT: Common Femoral Artery: PSV 176 cm/sec. Biphasic waveform. Proximal SFA: PSV 142 cm/sec. Biphasic waveform. Mid SFA: PSV 133 cm/sec. Biphasic waveform. Distal SFA: PSV 104 cm/sec. Biphasic waveform. Popliteal artery: PSV 87 cm/sec. Biphasic waveform. Posterior tibial artery: PSV 82 cm/sec. Biphasic waveform. Dorsalis Pedis Artery: PSV 11 cm/sec. Monophasic waveform. LEFT: Common Femoral Artery: PSV 186 cm/sec. Biphasic waveform. Proximal SFA: PSV 251 cm/sec. Monophasic waveform. Mid SFA: PSV 23 cm/sec. Monophasic waveform. Distal SFA: PSV 29 cm/sec. Monophasic waveform. Popliteal artery: PSV 43 cm/sec. Monophasic waveform. Posterior tibial artery: PSV 51 cm/sec. Monophasic waveform. Dorsalis Pedis Artery: PSV 12 cm/sec. Monophasic waveform. IMPRESSION: Moderate atherosclerotic disease in the lower extremity arterial structures, particularly on the left side. Monophasic waveforms are identified from the proximal superficial femoral artery to the dorsalis pedi s artery on the left side. Monophasic waveforms are identified in the right dorsalis pedis artery. Doppler Waveform: * Triphasic is normal. * Biphasic is abnormal if clear transition from triphasic signal along vascular tree. * Monophasic is abnormal. Signer Name: Reggie Velásquez Jr, MD Signed: 11/12/2021 10:51 AM Workstation Name: [id number]
== END 2021-11-12 08:40 | disposition home or self-care (01) ==
LOC: VAS 08:39
PROVIDERS: ATTEND Surgery Vascular Surgery
DX: I70.213 Atherosclerosis of native arteries of extremities with intermittent claudication, bilateral legs (principal)
CPT/HCPCS: 93925